=== PATIENT | male | born 1945 | race Caucasian/White ===

== ENCOUNTER → 2017-02-25 10:02 | Day surgery (SDC) | payer MEDICARE, OTHER ==
[~2017-02-25 10:02] MED LIST: Buffered Lidocaine 1% SYRIN* 3 ML/SYR SYRINGE INTRADERM ONE; Cisatracurium* 2 MG/ML MDV 5 ML ONE; Glycopyrrolate IV* 0.2 MG/ML 1 ML VIAL ONE; Lidocaine 2% PF* 5 ML VIAL ONE; Neostigmine Methylsulfate* 2 MG/2 ML SYRINGE ONE; Ondansetron INJ* 2 MG/ML VIAL IV PRN; Propofol* 10 MG/ML 20 ML BTL IV PUSH ONE; fentaNYL* 50 MCG/ML 2 ML VIAL (100 MCG VIAL) IV PRN; fentaNYL* 50 MCG/ML 2 ML VIAL (100 MCG VIAL) ONE
[2017-02-25 14:24] VITALS: BP 162/79
--- NOTE | 2017-02-26 09:04 | PRO ---
BRONCHOSCOPY REPORT: DATE OF PROCEDURE: 02/25/17 PROCEDURE PERFORMED: Bronchoscopy with endobronchial ultrasound-guided fine needle aspiration of mediastinal and hilar nodes. PREPROCEDURAL DIAGNOSIS: Lung mass in the left lower lobe and prominent mediastinal and hilar nodes. Rule out malignancy. ANESTHESIA: General anesthesia. ANESTHESIOLOGIST: Dr. Medina, refer to anesthesiologist's note for further details. PROCEDURE IN DETAIL: Informed consent was obtained from the patient prior to the procedure after all the risks and benefits were thoroughly explained. The patient recently had chest x-ray which showed pulmonary nodule in LLL. The patient had CT scan for evaluation of nodule which showed mildly prominent mediastinal and hilar nodes along with left lower lobe lobulated mass. The patient underwent PET scan which showed hypermetabolic left lower lobe nodule and increased uptake in hilar nodes on the left side. The patient was intubated with a size 9.0 endotracheal tube. Appropriate time-out was agreed on by attending staff prior to the procedure. Nazia Hugger and Venodynes were placed. A flexible Olympus bronchoscope was inserted through ET tube. The ET tube positioning was confirmed to be 1 cm about the level of court and was pulled back 2 cm. Minimal amount of secretions were noted and was suctioned out. Bronchoscope was withdrawn and EBUS bronchoscope was inserted. Station R4 lymph node was accessed with 4 passes. Rapid on-site evaluation(JEANETTE) revealed lymphatic tissue in 2 out of 4 passes. No abnormal cells were noted. Station 7 area node was accessed with 5 passes, JEANETTE revealed lymphatic tissue and necrotic debris. Bronchoscope was advanced to the left bronchial tree and L4 lymph node was accessed with 6 passes. Adequate lymphatic tissue was seen on JEANETTE . Necrotic tissue was seen. Bronchoscope was then advanced into the left hilum and station L10 was accessed with 5 passes. Necrotic tissue and malignant cells were noted. Rest of the specimen was placed in CytoLyt. The patient tolerated the procedure well. The patient was extubated and seen in recovery in optimal condition. [id number]/[facility] #: [id number] [facility]
== END | disposition home or self-care (01) ==
LOC: OR 10:02
PROVIDERS: ATTEND Internal Medicine
DX: C77.1 Secondary and unspecified malignant neoplasm of intrathoracic lymph nodes (principal); J98.4 Other disorders of lung; J44.9 Chronic obstructive pulmonary disease, unspecified; I10 Essential (primary) hypertension; Z87.891 Personal history of nicotine dependence; K21.9 Gastro-esophageal reflux disease without esophagitis; M19.90 Unspecified osteoarthritis, unspecified site
CPT/HCPCS: 88172; 88173; 88305; 88341; 88342; J2704; J3010

== ENCOUNTER 2017-04-08 09:19 | Emergency (ER) | payer MEDICARE, OTHER ==
[2017-04-08 09:57] VITALS: BP 161/73
--- NOTE | 2017-04-08 11:03 | UC ---
Calderon Nix Alok, scribed for Raz Arenas MD on 04/08/17 at 0952 . Neck Pain HPI - HPI Summary HPI Summary: 71M presents to the [facility] with neck pain for the past 2 weeks. Pt states his neck pain begins on the left side of his neck and radiates to the back of his head. Pt states his pain is worsened by supine position, as well as head movement worst on the left side. Pt states that while laying his pain is a 10/ 10 and currently at a 3/10. Pt denies numbness/weakness of face or extremities. Pt denies difficulty ambulating, or changes in BM or urine. Pt denies fever/ chills. Pt denies changes in vision, speech, or swallowing. Pt denies recent injury. Pt notes he remembers feeling a similar pain 10 years ago on the same side. PMHx includes a lung tumor diagnosed 4 weeks ago with chemo-treatment beginning 2 weeks ago. Additional PMHx includes HTN. - History of Current Complaint Chief Complaint: UCGeneralIllness Stated Complaint: PINCHED NERVE-NECK Time Seen by Provider: 04/08/17 09:34 Hx Obtained From: Patient Onset/Duration Of Injury/Symptoms: Weeks Mechanism Of Injury: No Known Trauma Onset/Duration: Lasting Weeks, Still Present Severity: Moderate Pain Intensity: 10 - while supine Pain Scale Used: 0-10 Numeric Location: Discrete At: - left side neck, Radiates To: - back of head Aggravating Factors: Position, Other: - head movement Alleviating Factors: Nothing Associated Signs & Symptoms: Negative: Weakness - Allergies/Home Medications Allergies/Adverse Reactions: Allergies Allergy/AdvReac Type Severity Reaction Status Date / Time Acetaminophen Allergy Intermediate inability Verified 03/11/17 10:55 [From Hydrocodone to urinate W/Acetaminophen] Hydrocodone Allergy Intermediate inability Verified 03/11/17 10:55 [From Hydrocodone to urinate W/Acetaminophen] Lactose Intolerance (GI) Allergy Intermediate Diarrhea Verified 03/11/17 10:55 Milk Protein Extract Allergy Intermediate hand Verified 03/11/17 10:55 [From Spiriva] numbness Naproxen [From Naprosyn] Allergy Intermediate Hives Verified 03/11/17 10:55 Tiotropium [From Spiriva] Allergy hand Verified 03/11/17 10:55 numbness seasonal-pollen Allergy See Comment Uncoded 03/11/17 10:55 PMH/Surg Hx/FS Hx/Imm Hx Endocrine History Of: Denies: Diabetes, Thyroid Disease Cardiovascular History Of: Denies: Cardiac Disorders, Hypertension, Pacemaker/ICD Respiratory History Of: Denies: COPD, Asthma, Bronchitis GI/ History Of: Denies: Ulcer, Renal Disease - Surgical History Surgical History: Yes Surgery Procedure, Year, and Place: knee right, 01/15/2012, [facility]. NASAL. LEFT WRIST. BLADDER tumor removedBRONCHOSCOPY-BIOPSY - MALIGNANT- END January. CATARACTS - Family History Known Family History: Positive: Other - No- Malignant Hypothermia - Social History Occupation: Retired Lives: With Family Alcohol Use: None Substance Use Type: None Smoking Status (MU): Former Smoker When Did the Patient Quit Smoking/Using Tobacco: Fall 1995 Review Of Systems Constitutional: Positive: Negative Genitourinary: Positive: Negative Musculoskeletal: Positive: Other: - neck pain Neurological: Positive: Headache All Other Systems Reviewed And Are Negative: Yes Physical Exam Triage Information Reviewed: Yes Appearance: Well-Appearing, No Pain Distress, Well-Nourished Vital Signs: Initial Vital Signs Temp 97.0 F 04/08/17 09:28 Pulse 67 04/08/17 09:28 Resp 16 04/08/17 09:28 BP 161/73 04/08/17 09:28 Pulse Ox 99 04/08/17 09:28 Vital Signs Reviewed: Yes ENT: Positive: Normal ENT inspection, Pharynx normal Neck: Positive: Supple, Nontender, Other: - range of motion to left is limited due to pain. Respiratory: Positive: Chest non-tender, Decreased breath sounds - bases Cardiovascular Exam: Normal Cardiovascular: Positive: RRR, No Murmur Musculoskeletal: Positive: Strength Intact, ROM Intact Neurological: Positive: Alert, Other: - CN 2-12 grossly intact, strength 5/5 throughout, sensory grossly intact. Gait normal. Psychological: Positive: Normal Response To Family Skin: Negative: rashes Neck Pain Course/Dx - Course Course Of Treatment: 71 yr old male with left side neck pain, worse with turning to the left and goes into the posterior left scalp area. He has neg MRI brain from March 2017, and recent PET scan of neck didn't show anything. He is on chemo and radiation for the past two weeks for left lower lung cancer. Dr Casillas called and attempted to coordinate care and imaging. His office staff left messages with him about the patient and to call us here. The patient has no neurological findings on exam. he wants to go and call Dr Casillas for follow up. He says he will go to the ER for any worse pain or symptoms. doesn't want pain meds. - Differential Dx/Diagnosis Provider Diagnoses: Left sided radicular neck pain - Physician Notification/Consults Discussed Patient Care With: Dr Casillas Time Discussed With Above Provider: 10:16 Discharge - Discharge Plan Condition: Good Disposition: HOME Patient Education Materials: Cervical Radiculopathy (ED), Neck Pain (ED) Referrals: Ruy Cain MD [Primary Care Provider] - Kike Casillas MD [Medical Doctor] - The documentation as recorded by the Calderon gage Alok accurately reflects the service I personally performed and the decisions made by me, Raz Arenas MD.
== END 2017-04-08 11:02 | disposition home or self-care (01) ==
LOC: UCEAST 09:19
DX: M54.12 Radiculopathy, cervical region (principal); R51 Headache; Z88.6 Allergy status to analgesic agent; Z88.5 Allergy status to narcotic agent; Z98.49 Cataract extraction status, unspecified eye; Z87.891 Personal history of nicotine dependence
CPT/HCPCS: 99212; G0463

== ENCOUNTER 2017-05-11 18:03 | Emergency (ER) | payer MEDICARE, OTHER ==
[2017-05-11] MEDS ORDERED: Ondansetron INJ* 2 MG/ML VIAL IV ONE (18:41)
[2017-05-11] MEDS ORDERED: Pantoprazole IV* 40 MG IV ONE (18:41)
[2017-05-11] MEDS: NS 0.9% 1000 ML* 2,000 ML IV ONE ×2 (19:17→20:20)
[2017-05-11 19:21] LABS: Hematocrit 25 % (42-52); Hemoglobin 8.8 g/dl (14.0-18.0); Mean Corpuscular HGB Conc 35 g/dl (31-36); Mean Corpuscular Hemoglobin 31 pg (27-31); Mean Corpuscular Volume 88 fL (80-94); Mean Platelet Volume 9 um3 (7.4-10.4); Red Blood Count 2.83 10^6/ul (4.0-5.4); Red Cell Distribution Width 15 % (10.5-15)
[2017-05-11 19:29] LABS: Comments Flag Yes; White Blood Count 1.7 10^3/ul (3.5-10.8)
[2017-05-11 19:36] LABS: Albumin 3.7 g/dL (3.2-5.2); BUN/Creatinine Ratio 20.3 (8-20); C Reactive Protein 13.66 mg/L (< 5.00); Calcium 9.3 mg/dL (8.6-10.3); EGFR African American 62.5 (>60); EGFR Non-African American 48.6 (>60); Globulin 2.9 g/dL (2-4); Total Bilirubin 0.7 mg/dL (0.2-1.0); Total Protein 6.6 g/dL (6.4-8.9)
[2017-05-11 19:37] LABS: Troponin I 0.02 ng/mL (<0.04)
[2017-05-11] MEDS ORDERED: Potassium Chlor TAB* 20 MEQ TAB.ER PO ONE (20:14)
--- NOTE | 2017-05-11 20:15 | ED ---
Hilton Nix Rebecca, scribed for Franky Bahena MD on 05/11/17 at 1926 . Complex/Multi-Sys Presentation - HPI Summary HPI Summary: Pt is a 71 y/o M who presents to ED c/o N/V/D for the last 3 days. States that he has been unable to keep down any PO intake since Tuesday with sx worsening since onset. Nausea alleviated by administration of IV Zofran, aggravated by PO intake. Denies any fever or pain including CP and abd pain. Pt recently finished chemotherapy and radiation Tx for lung CA. he has contacted his oncologist about such sx, who prescribed medication that the pt reports is not improving. Has not had prior reactions to chemotherapy. PCP is Dr. Cain, oncologist is Dr. Hernandez. - History Of Current Complaint Chief Complaint: EDNauseaVomitDiarrh Time Seen by Provider: 05/11/17 19:18 Hx Obtained From: Patient Onset/Duration: Still Present Timing: Intermittent, Lasting: Severity Currently: None Location: Negative Aggravating Factor(s): PO Intake Alleviating Factor(s): IV Zofran Associated Signs And Symptoms: Positive: Nausea, Vomiting, Diarrhea. Negative: Chest Pain, Abdominal Pain, Fever - Allergies/Home Medications Allergies/Adverse Reactions: Allergies Allergy/AdvReac Type Severity Reaction Status Date / Time Hydrocodone Allergy Intermediate inability Verified 05/11/17 20:44 [From Hydrocodone to urinate W/Acetaminophen] Lactose Intolerance (GI) Allergy Intermediate Diarrhea Verified 05/11/17 20:44 Milk Protein Extract Allergy Intermediate hand Verified 05/11/17 20:44 [From Spiriva] numbness Naproxen [From Naprosyn] Allergy Intermediate Hives Verified 05/11/17 20:44 Tiotropium [From Spiriva] Allergy hand Verified 05/11/17 20:44 numbness seasonal-pollen Allergy See Comment Uncoded 05/11/17 20:44 Home Medications: Home Medications Carafate* 1 gm PO QID 05/11/17 [History Confirmed 05/11/17] Compazine Tab* 10 mg PO Q6HR PRN 05/11/17 [History Confirmed 05/11/17] Esomeprazole(NF) 40 mg PO DAILY 05/11/17 [History Confirmed 05/11/17] Magnesium Oxide 400 mg PO BID 05/11/17 [History Confirmed 05/11/17] Zofran 4 MG Tab* 4 mg PO Q4HR PRN 05/11/17 [History Confirmed 05/11/17] PMH/Surg Hx/FS Hx/Imm Hx Endocrine/Hematology History: Denies: Hx Diabetes, Hx Thyroid Disease Cardiovascular History: Reports: Hx Angina - yrs ago 1995 Denies: Hx Hypertension, Hx Pacemaker/ICD, Other Cardiovascular Problems/ Disorders Respiratory History: Reports: Hx Sleep Apnea - NO C PCP, Other Respiratory Problems/Disorders Denies: Hx Asthma, Hx Chronic Obstructive Pulmonary Disease (COPD) GI History: Reports: Hx Gastroesophageal Reflux Disease Denies: Hx Ulcer, Other GI Disorders History: Reports: Other Problems/Disorders - hematuria, bladder tumor Denies: Hx Renal Disease Musculoskeletal History: Reports: Hx Arthritis - HANDS, knees Sensory History: Reports: Hx Contacts or Glasses Denies: Hx Hearing Aid Opthamlomology History: Reports: Hx Contacts or Glasses Neurological History: Denies: Other Neuro Impairments/Disorders Psychiatric History: Denies: Hx Panic Disorder - Cancer History Cancer Type, Location and Year: BLADDER TUMOR - REMOVED - NO OTHER TREATMENT- BENIGN. 01/2017 LUNG CANCER presently on chemo/rad Hx Chemotherapy: No Hx Radiation Therapy: No - Surgical History Surgery Procedure, Year, and Place: knee right, 01/15/2012, [facility]. NASAL. LEFT WRIST. BLADDER tumor removedBRONCHOSCOPY-BIOPSY - MALIGNANT- END January. CATARACTS Hx Anesthesia Reactions: No Infectious Disease History: No Infectious Disease History: Denies: Hx Clostridium Difficile, Hx Hepatitis, Hx Human Immunodeficiency Virus (HIV), Hx of Known/Suspected MRSA, Hx Shingles, Hx Tuberculosis, Hx Known/ Suspected VRE, Hx Known/Suspected VRSA, History Other Infectious Disease, Traveled Outside the [place] in Last 30 Days - Family History Known Family History: Positive: Other - Lung CA - Social History Alcohol Use: None Substance Use Type: Reports: None Hx Tobacco Use: No Smoking Status (MU): Former Smoker Have You Smoked in the Last Year: No Review of Systems Negative: Fever Negative: Chest Pain Positive: Vomiting, Diarrhea, Nausea. Negative: Abdominal Pain All Other Systems Reviewed And Are Negative: Yes Physical Exam Triage Information Reviewed: Yes Vital Signs On Initial Exam: Initial Vitals Temp Pulse Resp BP Pulse Ox 97.7 F 103 20 146/65 100 05/11/17 18:05 05/11/17 18:05 05/11/17 18:05 05/11/17 18:05 05/11/17 18:05 Vital Signs Reviewed: Yes Appearance: Positive: Well-Appearing, No Pain Distress Skin: Positive: Warm, Dry Head/Face: Positive: Normal Head/Face Inspection Eyes: Positive: REYMUNDO ENT: Positive: Hearing grossly normal Neck: Positive: Supple Respiratory/Lung Sounds: Positive: Clear to Auscultation, Breath Sounds Present Cardiovascular: Positive: RRR Abdomen Description: Positive: Nontender, Soft Bowel Sounds: Positive: Present Musculoskeletal: Positive: Strength/ROM Intact Neurological: Positive: Alert, Oriented to Person Place, Time Psychiatric: Positive: Affect/Mood Appropriate - [place] Coma Scale Coma Scale Total: 15 Diagnostics - Vital Signs Vital Signs Temp Pulse Resp BP Pulse Ox 05/11/17 18:07 97.7 F 76 20 146/65 100 05/11/17 18:05 97.7 F 103 20 146/65 100 - Laboratory Lab Results: Lab Results 05/11/17 05/11/17 05/11/17 Range/Units 19:08 19:08 19:08 WBC 1.7 L (3.5-10.8) 10^3/ul RBC 2.83 L (4.0-5.4) 10^6/ul Hgb 8.8 L (14.0-18.0) g/dl Hct 25 L (42-52) % MCV 88 (80-94) fL MCH 31 (27-31) pg MCHC 35 (31-36) g/dl RDW 15 (10.5-15) % Plt Count 103 L (150-450) 10^3/ul MPV 9 (7.4-10.4) um3 Neut % (Auto) 55.9 (38-83) % Lymph % (Auto) 11.6 L (25-47) % [place] % (Auto) 31.1 H (1-9) % Eos % (Auto) 1.0 (0-6) % Baso % (Auto) 0.4 (0-2) % Absolute Neuts (auto) 1.0 L (1.5-7.7) 10^3/ul Absolute Lymphs (auto) 0.2 L (1.0-4.8) 10^3/ul Absolute Monos (auto) 0.5 (0-0.8) 10^3/ul Absolute Eos (auto) 0 (0-0.6) 10^3/ul Absolute Basos (auto) 0 (0-0.2) 10^3/ul Absolute Nucleated RBC 0.01 10^3/ul Nucleated RBC % 0.4 Sodium 132 L (133-145) mmol/L Potassium 3.0 L (3.5-5.0) mmol/L Chloride 97 L (101-111) mmol/L Carbon Dioxide 23 (22-32) mmol/L Anion Gap 12 H (2-11) mmol/L BUN 29 H (6-24) mg/dL Creatinine 1.43 H (0.67-1.17) mg/dL Est GFR ( Amer) 62.5 (>60) Est GFR (Non-Af Amer) 48.6 (>60) BUN/Creatinine Ratio 20.3 H (8-20) Glucose 96 (70-100) mg/dL Lactic Acid 1.4 (0.5-2.0) mmol/L Calcium 9.3 (8.6-10.3) mg/dL Total Bilirubin 0.70 (0.2-1.0) mg/dL AST 14 (13-39) U/L ALT 8 (7-52) U/L Alkaline Phosphatase 72 (34-104) U/L Troponin I 0.02 (<0.04) ng/mL C-Reactive Protein 13.66 H (< 5.00) mg/L Total Protein 6.6 (6.4-8.9) g/dL Albumin 3.7 (3.2-5.2) g/dL Globulin 2.9 (2-4) g/dL Albumin/Globulin Ratio 1.3 (1-3) Amylase 24 L (29-103) U/L Lipase 13 (11.0-82.0) U/L Result Diagrams: 05/11/17 19:08 05/11/17 19:08 Lab Statement: Any lab studies that have been ordered have been reviewed, and results considered in the medical decision making process. - EKG 4306 Cardiac Rate: NL - 95 bpm EKG Rhythm: Sinus Rhythm ST Segment: Non-Specific - Non-specific ST abnormality Re-Evaluation - Re-Evaluation First Eval Re-Evaluation Time: 21:35 Change: Improved Second Eval Re-Evaluation Time: 22:37 Change: Improved Comment: Discussed D/C plan with pt. labs at baseline, tolerating po, wants to go home will d/c Complex Multi-Symp Course/Dx Assessment/Plan: Pt is a 71 y/o M who presents to ED c/o N/V/D for the last 3 days, worsening since onset. Nausea alleviated by administration of IV Zofran, aggravated by PO intake. Denies any fever or pain including CP and abd pain. Pt recently finished chemotherapy and radiation Tx for lung CA. he has contacted his oncologist about such sx, who prescribed medication that the pt reports is not improving. Has not had prior reactions to chemotherapy. PCP is Dr. Cain, oncologist is Dr. Hernandez. WBC of 1.7, CRP of 13.66, Sodium of 132, chloride of 97. Pt will be D/C to home with Dx of vomiting and dehydration with a follow up with his PCP. He agrees and understands. - Diagnoses Provider Diagnoses: Vomiting, Dehydration Discharge - Discharge Plan Condition: Stable Disposition: HOME Patient Education Materials: Dehydration (ED), Acute Nausea and Vomiting (ED) Referrals: Ruy Cain MD [Primary Care Provider] - 2 Days (Follow up with your Primary Care Physician this week. ) The documentation as recorded by the Hilton gage Rebecca accurately reflects the service I personally performed and the decisions made by me, Franky Bahena MD.
[2017-05-11 23:06] VITALS: BP 141/68
== END 2017-05-11 22:43 | disposition home or self-care (01) ==
LOC: ED 18:03
DX: R11.2 Nausea with vomiting, unspecified (principal); E86.0 Dehydration; R19.7 Diarrhea, unspecified; Z87.891 Personal history of nicotine dependence
CPT/HCPCS: 36415; 80053; 82150; 83605; 83690; 84484; 85025; 86140; 93005; 96374; 99283; A9270-GY; J2405

== ENCOUNTER 2017-05-13 20:31 | Inpatient (IN) | payer MEDICARE, OTHER ==
[2017-05-13] MEDS ORDERED: NS 0.9% 1000 ML* 1,000 ML IV ONE (21:30)
[2017-05-13 21:58] LABS: Hematocrit 22 % (42-52); Hemoglobin 7.8 g/dl (14.0-18.0); Mean Corpuscular HGB Conc 35 g/dl (31-36); Mean Corpuscular Hemoglobin 31 pg (27-31); Mean Corpuscular Volume 90 fL (80-94); Mean Platelet Volume 8 um3 (7.4-10.4); Red Blood Count 2.49 10^6/ul (4.0-5.4); Red Cell Distribution Width 17 % (10.5-15)
[2017-05-13 22:00] LABS: Comments Flag Yes
[2017-05-13 22:01] LABS: White Blood Count 1.7 10^3/ul (3.5-10.8)
[2017-05-13 22:15] LABS: Albumin 3.4 g/dL (3.2-5.2); BUN/Creatinine Ratio 17.4 (8-20); Calcium 8.8 mg/dL (8.6-10.3); EGFR Non-African American 48.2 (>60); Globulin 2.7 g/dL (2-4); Magnesium 1.7 mg/dL (1.9-2.7); Potassium 2.9 mmol/L (3.5-5.0); Total Bilirubin 0.7 mg/dL (0.2-1.0); Total Protein 6.1 g/dL (6.4-8.9)
[2017-05-13 22:16] LABS: Troponin I 0.01 ng/mL (<0.04)
--- NOTE | 2017-05-13 22:28 | ED ---
Jenna Nix Thomas, scribed for Franky Bahena MD on 05/13/17 at 2219 . Dizziness - HPI Summary HPI Summary: The pt is a 71 y/o M with a Hx of chemotherapy and CA who presents to the ED c/ o severe dizziness. The pt was driving when he developed severe dizziness that caused him to stop driving. He additionally c/o vomiting and inability to keep any food down. He denies pain anywhere. His last chemotherapy appointment was 10 days ago. He saw his oncologist yesterday. - History Of Current Complaint Chief Complaint: EDGeneral Stated Complaint: DIZZINESS/NAUSEA Time Seen by Provider: 05/13/17 21:22 Hx Obtained From: Patient Onset/Duration: Suddenly Severity Initially: Severe Aggravating Factor(s): Nothing Alleviating Factor(s): Nothing Associated Signs And Symptoms: Positive: Other: - POS: vomiting, inability to keep food down; NEG: pain of any sort - Allergies/Home Medications Allergies/Adverse Reactions: Allergies Allergy/AdvReac Type Severity Reaction Status Date / Time Hydrocodone Allergy Intermediate inability Verified 05/11/17 20:44 [From Hydrocodone to urinate W/Acetaminophen] Lactose Intolerance (GI) Allergy Intermediate Diarrhea Verified 05/11/17 20:44 Milk Protein Extract Allergy Intermediate hand Verified 05/11/17 20:44 [From Spiriva] numbness Naproxen [From Naprosyn] Allergy Intermediate Hives Verified 05/11/17 20:44 Tiotropium [From Spiriva] Allergy hand Verified 05/11/17 20:44 numbness seasonal-pollen Allergy See Comment Uncoded 05/11/17 20:44 Home Medications: Home Medications Benzonatate 100 mg PO Q8HR 05/13/17 [History Confirmed 05/13/17] Clotrimazole 10 mg PO TID 05/13/17 [History Confirmed 05/13/17] Docusate Sodium [Colace Clear] 50 mg PO BID 05/13/17 [History Confirmed 05/13/17 ] Lorazepam [Ativan 0.5 MG TAB] 0.5 mg PO TID MDD 3 tablets 05/13/17 [History Confirmed 05/14/17] PMH/Surg Hx/FS Hx/Imm Hx Previously Healthy: No Endocrine/Hematology History: Denies: Hx Diabetes, Hx Thyroid Disease Cardiovascular History: Reports: Hx Angina - yrs ago 1995 Denies: Hx Hypertension, Hx Pacemaker/ICD, Other Cardiovascular Problems/ Disorders Respiratory History: Reports: Hx Sleep Apnea - NO C PCP, Other Respiratory Problems/Disorders Denies: Hx Asthma, Hx Chronic Obstructive Pulmonary Disease (COPD) GI History: Reports: Hx Gastroesophageal Reflux Disease Denies: Hx Ulcer, Other GI Disorders History: Reports: Other Problems/Disorders - hematuria, bladder tumor Denies: Hx Renal Disease Musculoskeletal History: Reports: Hx Arthritis - HANDS, knees Sensory History: Reports: Hx Contacts or Glasses Denies: Hx Hearing Aid Opthamlomology History: Reports: Hx Contacts or Glasses Neurological History: Denies: Other Neuro Impairments/Disorders Psychiatric History: Denies: Hx Panic Disorder - Cancer History Cancer Type, Location and Year: BLADDER TUMOR - REMOVED - NO OTHER TREATMENT- BENIGN. 01/2017 LUNG CANCER presently on chemo/rad Hx Chemotherapy: No Hx Radiation Therapy: No - Surgical History Surgery Procedure, Year, and Place: knee right, 01/15/2012, [facility]. NASAL. LEFT WRIST. BLADDER tumor removedBRONCHOSCOPY-BIOPSY - MALIGNANT- END January. CATARACTS Hx Anesthesia Reactions: No Infectious Disease History: No Infectious Disease History: Denies: Hx Clostridium Difficile, Hx Hepatitis, Hx Human Immunodeficiency Virus (HIV), Hx of Known/Suspected MRSA, Hx Shingles, Hx Tuberculosis, Hx Known/ Suspected VRE, Hx Known/Suspected VRSA, History Other Infectious Disease, Traveled Outside the [place] in Last 30 Days - Family History Known Family History: Positive: Other - Lung CA - Social History Alcohol Use: None Substance Use Type: Reports: None Hx Tobacco Use: No Smoking Status (MU): Former Smoker Have You Smoked in the Last Year: No Review of Systems Positive: Other - inability to keep food down Eyes: Negative ENT: Negative Cardiovascular: Negative Respiratory: Negative Positive: Vomiting Genitourinary: Negative Musculoskeletal: Negative Skin: Negative Neurological: Other - POS: dizziness, onset suddenly earlier today Psychological: Normal All Other Systems Reviewed And Are Negative: Yes Physical Exam Triage Information Reviewed: Yes Vital Signs On Initial Exam: Initial Vitals Temp Pulse Resp BP Pulse Ox 98.6 F 106 20 141/63 99 05/13/17 20:58 05/13/17 20:58 05/13/17 20:58 05/13/17 20:58 05/13/17 20:58 Vital Signs Reviewed: Yes Appearance: Positive: No Pain Distress, Ill-Appearing Skin: Positive: Warm, Pale Head/Face: Positive: Normal Head/Face Inspection Eyes: Positive: REYMUNDO ENT: Positive: Hearing grossly normal Neck: Positive: Supple, Nontender Respiratory/Lung Sounds: Positive: Clear to Auscultation, Breath Sounds Present Cardiovascular: Positive: RRR Abdomen Description: Positive: Nontender, Soft Bowel Sounds: Positive: Present Musculoskeletal: Positive: Strength/ROM Intact Neurological: Positive: Alert, Oriented to Person Place, Time Psychiatric: Positive: Affect/Mood Appropriate Diagnostics - Vital Signs Vital Signs Temp Pulse Resp BP Pulse Ox 05/13/17 20:58 98.6 F 106 20 141/63 99 - Laboratory Lab Results: Lab Results 05/13/17 05/13/17 Range/Units 21:47 21:47 WBC 1.7 L (3.5-10.8) 10^3/ul RBC 2.49 L (4.0-5.4) 10^6/ul Hgb 7.8 L (14.0-18.0) g/dl Hct 22 L (42-52) % MCV 90 (80-94) fL MCH 31 (27-31) pg MCHC 35 (31-36) g/dl RDW 17 H (10.5-15) % Plt Count 92 L (150-450) 10^3/ul MPV 8 (7.4-10.4) um3 Neut % (Auto) 46.1 (38-83) % Lymph % (Auto) 13.0 L (25-47) % [place] % (Auto) 39.7 H (1-9) % Eos % (Auto) 0.7 (0-6) % Baso % (Auto) 0.5 (0-2) % Absolute Neuts (auto) 0.8 L* (1.5-7.7) 10^3/ul Absolute Lymphs (auto) 0.2 L (1.0-4.8) 10^3/ul Absolute Monos (auto) 0.7 (0-0.8) 10^3/ul Absolute Eos (auto) 0 (0-0.6) 10^3/ul Absolute Basos (auto) 0 (0-0.2) 10^3/ul Absolute Nucleated RBC 0 10^3/ul Nucleated RBC % 0.3 Lactic Acid 0.9 (0.5-2.0) mmol/L Result Diagrams: 05/13/17 21:47 05/13/17 21:47 Lab Statement: Any lab studies that have been ordered have been reviewed, and results considered in the medical decision making process. - EKG 21:30 Cardiac Rate: NL - 90 EKG Interpretation: SR Re-Evaluation - Re-Evaluation First Eval Comment: pt with progresively worsening anemia, weakness decreased po intake, will admit, d/w hospitalist Dizzy Course/Dx - Diagnoses Provider Diagnoses: Anemia - Provider Notifications Discussed Care Of Patient With: Johny Belcher Time Discussed With Above Provider: 22:30 Instructed by Provider To: Admit As Inpatient - Discussed patient Discharge - Discharge Plan Condition: Fair Disposition: ADMITTED TO [facility] The documentation as recorded by the Jenna gage Thomas accurately reflects the service I personally performed and the decisions made by me, Franky Bahena MD.
[2017-05-13] MEDS ORDERED: Ondansetron INJ* 2 MG/ML VIAL IV PRN (23:33)
[2017-05-14] MEDS: NS 0.9% w/ 20 Meq KCL 1000 ML* 1,000 ML IV SCH ×3 (01:43→22:04)
[2017-05-14 05:26] LABS: Hematocrit 22 % (42-52); Hemoglobin 7.5 g/dl (14.0-18.0); Mean Corpuscular HGB Conc 35 g/dl (31-36); Mean Corpuscular Hemoglobin 31 pg (27-31); Mean Corpuscular Volume 90 fL (80-94); Mean Platelet Volume 8 um3 (7.4-10.4); Red Blood Count 2.42 10^6/ul (4.0-5.4); Red Cell Distribution Width 17 % (10.5-15)
[2017-05-14 05:36] LABS: Comments Flag Yes; White Blood Count 1.5 10^3/ul (3.5-10.8)
[2017-05-14 05:40] LABS: BUN/Creatinine Ratio 16.4 (8-20); Calcium 8.2 mg/dL (8.6-10.3); EGFR Non-African American 55.2 (>60); Potassium 3.1 mmol/L (3.5-5.0)
[2017-05-14] MEDS: Omeprazole CAP* 20 MG PO SCH (05:45)
[2017-05-14] MEDS ORDERED: Magnesium Sulf 4 GM/100 ML IV* 4,000 MG/100 ML BAG IVPB ONE (08:50)
[2017-05-14] MEDS ORDERED: Pneumococcal Vac Polyvalent* 0.5 ML VIAL IM ONE (09:00)
--- NOTE | 2017-05-14 09:11 | PN ---
Progress Note - Progress Note Date of Service: 05/14/17 SOAP: Subjective: feels better than yesterday. no dizziness yet this morning but has not ambulated. reports that he had a coughing fit while driving yesterday, got dizzy, thought he pulled over to the side of the road but apparently when he "came to" he was in the middle of the road. denies headaches, nausea, double vision, or focal neurological complaints. He has had poor PO intake which he relates to trouble swallowing (just finished RT Tuesday). He was nauseous earlier in the week but not now. While speaking to me he was clearly having trouble swallowing eggs (pain mid throat). no diarrhea Objective: Vital Signs Temp Pulse Resp BP Pulse Ox 98.2 F 91 16 131/54 97 05/14/17 07:33 05/14/17 07:33 05/14/17 07:33 05/14/17 07:33 05/14/17 07:33 sitting up in nad perr eomi op dry distant breath sounds s1 s2 nl soft nt +bs no le edema A+O x 3, nonfocal neurological exam Laboratory Results - last 24 hr 05/13/17 05/13/17 05/13/17 21:47 21:47 21:47 WBC 1.7 L RBC 2.49 L Hgb 7.8 L Hct 22 L MCV 90 MCH 31 MCHC 35 RDW 17 H Plt Count 92 L MPV 8 Neut % (Auto) 46.1 Lymph % (Auto) 13.0 L [place] % (Auto) 39.7 H Eos % (Auto) 0.7 Baso % (Auto) 0.5 Absolute Neuts (auto) 0.8 L* Absolute Lymphs (auto) 0.2 L Absolute Monos (auto) 0.7 Absolute Eos (auto) 0 Absolute Basos (auto) 0 Absolute Nucleated RBC 0 Nucleated RBC % 0.3 Sodium 132 L Potassium 2.9 L Chloride 99 L Carbon Dioxide 22 Anion Gap 11 BUN 25 H Creatinine 1.44 H Est GFR ( Amer) 62.0 Est GFR (Non-Af Amer) 48.2 BUN/Creatinine Ratio 17.4 Glucose 93 Lactic Acid 0.9 Calcium 8.8 Magnesium 1.7 L Total Bilirubin 0.70 AST 14 ALT 9 Alkaline Phosphatase 63 Troponin I 0.01 Total Protein 6.1 L Albumin 3.4 Globulin 2.7 Albumin/Globulin Ratio 1.3 05/14/17 05/14/17 05:10 05:10 WBC 1.5 L RBC 2.42 L Hgb 7.5 L Hct 22 L MCV 90 MCH 31 MCHC 35 RDW 17 H Plt Count 84 L MPV 8 Neut % (Auto) 47.8 Lymph % (Auto) 11.5 L [place] % (Auto) 38.9 H Eos % (Auto) 1.3 Baso % (Auto) 0.5 Absolute Neuts (auto) 0.7 L* Absolute Lymphs (auto) 0.2 L Absolute Monos (auto) 0.6 Absolute Eos (auto) 0 Absolute Basos (auto) 0 Absolute Nucleated RBC 0.02 Nucleated RBC % 1.4 Sodium 135 Potassium 3.1 L Chloride 104 Carbon Dioxide 22 Anion Gap 9 BUN 21 Creatinine 1.28 H Est GFR ( Amer) 71.0 Est GFR (Non-Af Amer) 55.2 BUN/Creatinine Ratio 16.4 Glucose 93 Lactic Acid Calcium 8.2 L Magnesium Total Bilirubin AST ALT Alkaline Phosphatase Troponin I Total Protein Albumin Globulin Albumin/Globulin Ratio Potassium Chloride/Sodium Chloride (Ns 0.9% W/ 20 Meq Kcl 1000 Ml*) 1,000 mls @ 125 mls/hr IV PER RATE [facility] Last Admin: 05/14/17 01:43 Dose: 125 mls/hr Magnesium Sulfate (Magnesium Sulf 4 Gm/100 Ml Iv*) 4,000 mg in 100 mls @ 33.333 mls/hr IVPB ONCE ONE Stop: 05/14/17 11:49 Omeprazole (Prilosec Cap*) 20 mg PO 0600 [facility] Last Admin: 05/14/17 05:45 Dose: 20 mg Ondansetron HCl (Zofran Inj*) 4 mg IV Q4H PRN PRN Reason: NAUSEA Sucralfate (Sucralfate Susp) 1 gm PO 0600,1100,1600,2100 [facility] Assessment: 71 yo M w unresectable lung CA sp carbo/taxol/RT (last chemo 05/03, last RT 05/09 ) presenting with dizziness in the setting of dehydration and symptomatic anemia. Plan: Dehydration: related to poor PO intake from esophagitis and earlier nausea and vomiting -replete IV with KCL in bag acute renal failure: prerenal azotemia from poor PO intake relete IV dizziness: suspect from dehydration and symptomatic anemia will transfuse this afternoon and then check orthostatic and ambulate. if still dizzy will image [employer] symptomatic anemia: from chemotherapy transfuse today esophagitis: related to RT, will take another week or so to start to improve add carafate liquid may need to consider soft diet cont PPI hypomagnesemia: from carboplatin replete IV, recheck in am add DVT prophylaxis full code
[2017-05-14] MEDS ORDERED: traMADol TAB* 50 MG PO PRN (11:35)
[2017-05-14] MEDS: Enoxaparin(*) 40 MG/0.4 ML SYR SUBCUT SCH (12:13)
[2017-05-14] MEDS: Sucralfate SUSP 1 GM/10 ml 10 ML UDC PO SCH ×3 (12:13→20:50)
--- NOTE | 2017-05-14 14:42 | HP ---
CC: Dr. Ruy Cain; Dr. Kike Casillas* HISTORY AND PHYSICAL: DATE OF ADMISSION: 05/13/17 CHIEF COMPLAINT: Dizziness. 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 He thought he might have actually steered his car off the road, but he did not. At that time, he had no nausea. He had no headache. He did have a cough though that was quite considerable. He denied fevers or chills. He is currently coughing up some light clear phlegm. He has been feeling increasingly weak lately. He was actually in the ER on Tuesday mostly because he was so weak he could not walk, but that is not as much of a problem now. He also recently completed chemotherapy a week ago. He got home, still felt quite dizzy and called his oncologist but then he just came over to the hospital at that point. He has had a decreased appetite and says anytime he eats anything lately, he just throws it up, so he thinks he has decreased oral intake. PAST MEDICAL HISTORY: He has a past medical history for recently diagnosed lung cancer, he is not quite sure what type; hypertension; COPD; hyperlipidemia ; arthritis; GERD; decreased hearing; chronic epistaxis; colonic polyps; BPH; and iron deficiency anemia. PAST SURGICAL HISTORY: Significant for knee surgery, wrist surgery, and cystoscopy where he was diagnosed for resection of bladder lesions. MEDICATIONS: His medication list is being updated, not currently available. ALLERGIES: He has allergy/adverse reactions to HYDROCODONE, LACTOSE, Milk Protein Extract, NAPROXEN, TIOTROPIUM and SEASONAL POLLEN. FAMILY HISTORY: His father had lung cancer, mother had brain cancer and lung cancer and of heart disease. SOCIAL HISTORY: Quit tobacco 21 years ago. No alcohol, he quit that 21 years ago as well. No recreational drug use. He is retired. He worked for [employer]. 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 He is . He has step-children. His Billie Espinosa is his health care proxy. REVIEW OF SYSTEMS: A 14-point review of systems was completed with the patient. All pertinent positives and negatives are in the history of present illness, otherwise is negative. PHYSICAL EXAMINATION GENERAL: A very pleasant gentleman, lying in bed, in no acute distress. VITAL SIGNS: Temperature 98.6 degrees, heart rate 106 beats per minute, respiratory rate 20 breaths per minute, pulse ox 99%, blood pressure 140/63. HEENT: Normocephalic, atraumatic. Pupils equal, round, reactive to light. He has got dry mucous membranes. NECK: Supple. No JVD, bruits, palpable thyroid, or lymphadenopathy. CHEST: Clear to auscultation and percussion bilaterally. CARDIOVASCULAR: S1, S2 appreciated, regular rate and rhythm. ABDOMEN: Positive bowel sounds in all 4 quadrants. Soft, nontender, nondistended. EXTREMITIES: No cyanosis, clubbing, or edema, +2 peripheral pulses bilaterally. NEUROLOGIC: Alert and oriented x3. Moves all extremities. SKIN: No rash or abnormalities. LABORATORY DATA: White count 1.7, hemoglobin 7.8, hematocrit 22, platelet count is 92. Sodium is 132, potassium 3.9, chloride 99, CO2 22, BUN 25, creatinine 1.44, glucose 93, magnesium 1.7. EKG shows normal sinus rhythm at 90 beats per minute. Normal axis. No acute ST -T wave changes. ASSESSMENT AND PLAN: 1. Dizziness, most certainly secondary to decreased p.o. intake and dehydration. He has not been taking much p.o. lately. He does seem to have dehydration also based on his labs. Furthermore, it is likely complicated by the pancytopenia he now has likely from the chemotherapy. I will hydrate him with normal saline with 20 mL of K, 125 cc an hour. I will give him a regular diet. I will place him on Zofran, hopefully this will help with the nausea and we can increase his p.o. intake and make him feel improved. 2. Pancytopenia: Likely from chemo. We will monitor. Certainly his anemia is not helping matters. If he decreases at all anymore, we will consider strongly giving him blood transfusion which should help him feel better. 3. Cough: Uncertain why he is having one at this time, certainly could be from the lung cancer. I will put him on Tessalon Perles for now. 4. Hypertension: Should improve once we initiate his antihypertensives when he has med rec done. 5. Gastroesophageal reflux disease: We will place him on PPI as well as he is chronically on that. 6. FEN: Regular diet and normal saline with 20 mL of K at 25 cc as noted above. 7. DVT prophylaxis: His platelets are low, I will put him on sequential compression stockings. 8. The patient is a full code. TIME SPENT: Over 75 minutes was spent on this H and P. More than 40 minutes of which was spent on direct [id number] contact with the patient evaluation, physical exam, counseling, and coordination of care. [id number]/[facility] #: [id number] SAMMY
[2017-05-15 05:11] LABS: Urine Bacteria Absent (Absent); Urine Bilirubin Negative (Negative); Urine Glucose Negative (Negative); Urine Nitrite Negative (Negative)
[2017-05-15] MEDS: Omeprazole CAP* 20 MG PO SCH (06:13)
[2017-05-15] MEDS: Sucralfate SUSP 1 GM/10 ml 10 ML UDC PO SCH ×2 (06:13→11:00)
[2017-05-15] MEDS: NS 0.9% w/ 20 Meq KCL 1000 ML* 1,000 ML IV SCH (06:16)
[2017-05-15 06:54] LABS: Hematocrit 26 % (42-52); Mean Corpuscular HGB Conc 35 g/dl (31-36); Mean Corpuscular Hemoglobin 31 pg (27-31); Mean Corpuscular Volume 90 fL (80-94); Mean Platelet Volume 8 um3 (7.4-10.4); Red Blood Count 2.91 10^6/ul (4.0-5.4); Red Cell Distribution Width 16 % (10.5-15); White Blood Count 1.5 10^3/ul (3.5-10.8)
[2017-05-15 06:56] LABS: Comments Flag Yes
[2017-05-15 07:04] LABS: Albumin 3.1 g/dL (3.2-5.2); Calcium 8.1 mg/dL (8.6-10.3); EGFR African American 94.5 (>60); EGFR Non-African American 73.5 (>60); Globulin 2.5 g/dL (2-4); Magnesium 2.1 mg/dL (1.9-2.7); Potassium 3.4 mmol/L (3.5-5.0); Total Bilirubin 0.5 mg/dL (0.2-1.0); Total Protein 5.6 g/dL (6.4-8.9)
[2017-05-15] MEDS: Enoxaparin(*) 40 MG/0.4 ML SYR SUBCUT SCH (11:01)
--- NOTE | 2017-05-15 11:55 | DCNOTE ---
Patient seen this morning. Has been ambulating around the unit since yesterday, no recurrent of dizziness. Appetite has improved, ate all of his breakfast. On exam, RRR, s1 and s2 present, no m/g/r, some coarse BS in LLL field, no LE edema AVNI resolved, electrolytes improved, anemia responded appropriately. Still pancytopenic. ANC 800. Plan to discharge today with plans for outpatient PCP and Oncology follow-up.
[2017-05-15 12:07] VITALS: BP 141/59
--- NOTE | 2017-05-16 11:49 | DS ---
CC: Dr. Cain; Dr. Kike Casillas, Oncology* DISCHARGE SUMMARY: DATE OF ADMISSION: 05/13/17 DATE OF DISCHARGE: 05/15/17 PRIMARY CARE PHYSICIAN: Dr. Cain. PRINCIPAL DISCHARGE DIAGNOSES: 1. Acute kidney injury. 2. Dehydration. 3. Hypokalemia. 4. Hypomagnesemia. 5. Pancytopenia. SECONDARY DIAGNOSES: 1. Lung cancer, currently receiving chemotherapy and radiation therapy. 2. Hypertension. 3. Chronic obstructive pulmonary disease. 4. Hyperlipidemia. 5. Arthritis. 6. Gastroesophageal reflux disease. 7. Benign prostatic hyperplasia. DISCHARGE MEDICATION REGIMEN: 1. Potassium chloride 20 mEq by mouth daily. 2. Carafate 1 g by mouth 4 times daily. 3. Esomeprazole 40 mg by mouth daily. 4. Tessalon 100 mg by mouth every 8 hours. 5. Montelukast 10 mg by mouth daily. 6. Compazine 10 mg by mouth every 6 hours as needed for nausea. 7. Magnesium oxide 400 mg by mouth 2 times daily. 8. Clotrimazole 10 mg by mouth 3 times daily. 9. Amlodipine 10 mg by mouth daily. 10. Docusate 50 mg by mouth 3 times daily. 11. Finasteride 5 mg by mouth daily. 12. Pravastatin 20 mg by mouth daily. 13. Zofran 4 mg by mouth every 4 hours as needed for nausea. 14. Fluocinonide cream 1 ointment topical daily as needed for rash. 15. Tramadol 50 mg by mouth every 6 hours as needed for pain. 16. Lorazepam 0.5 mg by mouth 3 times daily. Medications stopped during this admission: 1. Lisinopril. 2. Hydrochlorothiazide. HISTORY OF PRESENT ILLNESS AND HOSPITAL SUMMARY: Please see the full history and physical by Dr. Johny Belcher for full details. Briefly, Mr. Espinosa is a 71- year-old male with past medical history as above including recently diagnosed lung cancer, who presented to the hospital with lightheadedness, weakness, decreased p.o. intake. He was noted to be dehydrated on exam and had AVNI on labs as well as hypokalemia and hypomagnesemia. It was felt that the patient's decreased p.o. intake likely resulted from the chemotherapy as well as recent radiation therapy. He was started on IV fluids. His potassium and magnesium were repleted. Patient had pancytopenia from his chemotherapy, received a unit of blood while here in the hospital with appropriate rise in his hemoglobin and hematocrit. Patient's renal function normalized and his appetite improved. It was felt that he would be able to maintain adequate p.o. intake as an outpatient. He was restarted on Norvasc, but his other antihypertensive medications were held until he follows up with his PCP. Patient had been on potassium supplementation in the past; however, he states the pills had aggravated his stomach. We will change his prescription to liquid form. For some reason, he cannot get this filled in pharmacy. He was instructed to have 1 to 2 bananas daily. He will need to follow up with Dr. Casillas as well as with Dr. Cain, his PCP. TIME SPENT: Total time spent on this discharge 35 minutes. This is a summary of the hospitalization. Please see the full medical record for further details. [id number]/[facility] #: [id number] MTDD
== END 2017-05-15 15:20 | disposition home or self-care (01) | DRG 682 ==
LOC: ED 20:31 → MED 23:33 → OBSVTOIN 05-14 14:38
PROVIDERS: ADMIT Internal Medicine; ATTEND Hospitalist
PROC: 30233N1 Transfusion of Nonautologous Red Blood Cells into Peripheral Vein, Percutaneous Approach (ICD-10-PCS; principal; 2017-05-14)
DX: N17.9 Acute kidney failure, unspecified (principal); D61.810 Antineoplastic chemotherapy induced pancytopenia; J44.9 Chronic obstructive pulmonary disease, unspecified; D64.81 Anemia due to antineoplastic chemotherapy; E86.0 Dehydration; C34.90 Malignant neoplasm of unspecified part of unspecified bronchus or lung; E83.42 Hypomagnesemia; I10 Essential (primary) hypertension; E78.5 Hyperlipidemia, unspecified; K21.9 Gastro-esophageal reflux disease without esophagitis; N40.0 Benign prostatic hyperplasia without lower urinary tract symptoms; K63.5 Polyp of colon; E73.9 Lactose intolerance, unspecified; G47.30 Sleep apnea, unspecified; M19.042 Primary osteoarthritis, left hand; M19.041 Primary osteoarthritis, right hand; M17.0 Bilateral primary osteoarthritis of knee; T45.1X5A Adverse effect of antineoplastic and immunosuppressive drugs, initial encounter; K20.8 Other esophagitis; Y84.2 Radiological procedure and radiotherapy as the cause of abnormal reaction of the patient, or of later complication, without mention of misadventure at the time of the procedure; E87.6 Hypokalemia; Z92.21 Personal history of antineoplastic chemotherapy; Z92.3 Personal history of irradiation; Z82.49 Family history of ischemic heart disease and other diseases of the circulatory system; Z80.1 Family history of malignant neoplasm of trachea, bronchus and lung; Z80.8 Family history of malignant neoplasm of other organs or systems; Z87.891 Personal history of nicotine dependence; Z88.5 Allergy status to narcotic agent; Z88.8 Allergy status to other drugs, medicaments and biological substances; Z91.048 Other nonmedicinal substance allergy status; Z98.42 Cataract extraction status, left eye; Z98.41 Cataract extraction status, right eye; Y92.9 Unspecified place or not applicable
CPT/HCPCS: A9270-GY; G0378; G0463; G8427; J1650; J2405; P9040

== ENCOUNTER 2017-07-06 11:07 | Day surgery (SDC) | payer MEDICARE, OTHER ==
[~2017-07-06 11:07] MED LIST changes: +Buffered Lidocaine 0.9% SYRIN* 5 ML/SYR SYRINGE INTRADERM ONE; -Buffered Lidocaine 1% SYRIN* 3 ML/SYR SYRINGE INTRADERM ONE; -Cisatracurium* 2 MG/ML MDV 5 ML ONE; +Dexamethasone IV* 4 MG/ML 1 ML (4 MG) IV SLOW PU ONE; +Famotidine IV* 10 MG/ML 2 ML (20 mg) IV ONE; -Glycopyrrolate IV* 0.2 MG/ML 1 ML VIAL ONE; +Levalbuterol 0.63MG/3ML NEB* UNIT OF USE INH ONE; -Lidocaine 2% PF* 5 ML VIAL ONE; -Neostigmine Methylsulfate* 2 MG/2 ML SYRINGE ONE; -Ondansetron INJ* 2 MG/ML VIAL IV PRN; -Propofol* 10 MG/ML 20 ML BTL IV PUSH ONE; -fentaNYL* 50 MCG/ML 2 ML VIAL (100 MCG VIAL) IV PRN; -fentaNYL* 50 MCG/ML 2 ML VIAL (100 MCG VIAL) ONE
[2017-07-06] MEDS ORDERED: Buffered Lidocaine 0.9% SYRIN* 5 ML/SYR SYRINGE ONE (11:14)
[2017-07-06] MEDS ORDERED: Levalbuterol 1.25MG/0.5ML NEB ONE (11:14)
[2017-07-06] MEDS ORDERED: Famotidine IV* 10 MG/ML 2 ML (20 mg) ONE (11:14)
[2017-07-06] MEDS ORDERED: Dexamethasone IV* 4 MG/ML 1 ML (4 MG) ONE (11:14)
[2017-07-06] MEDS ORDERED: fentaNYL* 50 MCG/ML 5 ML VIAL (250 MCG VIAL) ONE (12:09)
[2017-07-06] MEDS ORDERED: Midazolam* 1 MG/ML 2 ML VIAL (2 MG) ONE (12:09)
[2017-07-06] MEDS ORDERED: Propofol* 10 MG/ML 20 ML BTL IV PUSH ONE (12:10)
[2017-07-06] MEDS ORDERED: Ondansetron INJ* 2 MG/ML VIAL ONE (12:10)
[2017-07-06] MEDS ORDERED: Lidocaine 2% PF * 5 ML VIAL ONE (12:10)
[2017-07-06] MEDS ORDERED: EPHEDrine (Pressors)* 50 MG/ML VIAL ONE (13:17)
[2017-07-06 14:49] VITALS: BP 132/62
--- NOTE | 2017-07-07 11:59 | PRO ---
BRONCHOSCOPY REPORT: DATE OF PROCEDURE: 07/06/17 PROCEDURE PERFORMED BY: Shanon Liao MD ANESTHESIOLOGIST: Dr. Borjas, refer to anesthesiologist's note for further details. ANESTHESIA: General anesthesia. PROCEDURE PERFORMED: Bronchoscopy with endobronchial ultrasound-guided fine needle aspiration of L4 and station 7 lymph node. DESCRIPTION OF PROCEDURE: Informed consent was obtained from the patient prior to the procedure after all the risks and benefits were thoroughly explained. 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 He was scheduled for EBUS guided biopsy of L4 lymph node. Time-out was agreed on by attending staff. The patient was placed supine on the operating table. The patient was intubated with size 8.0 endotracheal tube. Flexible bronchoscopy was utilized for airway inspection. ET tube positioning was confirmed to be 2 cm above the level of court. Bronchoscope was then advanced into the right bronchial tree, which was inspected. No endobronchial lesions were noted, thin white secretions were noted and was suctioned out. Bronchoscope was then advanced into the left bronchial tree, which was inspected. No endobronchial lesions were noted. Thin white secretions were noted and were suctioned out. Bronchoscope was then withdrawn and EBUS bronchoscope was inserted. Station L4 lymph node was accessed with 8 passes. Adequate lymphatic tissue was noted and malignant cells noted. Specimen was placed in CytoLyt for further testing. Station 7 lymph node was accessed with two passes. No malignant cells were noted. The patient tolerated the procedure well. Specimen was sent to lab for further testing. The patient was extubated and was seen in Recovery in optimal condition. [id number]/[facility] #: [id number] [facility]
== END 2017-07-06 15:05 | disposition home or self-care (01) ==
LOC: OR 11:07
PROVIDERS: ATTEND Internal Medicine
DX: C34.92 Malignant neoplasm of unspecified part of left bronchus or lung (principal); J44.9 Chronic obstructive pulmonary disease, unspecified; Z87.891 Personal history of nicotine dependence; I10 Essential (primary) hypertension; M19.90 Unspecified osteoarthritis, unspecified site
CPT/HCPCS: 88172; 88173; 88305; 88342; 88360; A9270-GY; J1100; J2250; J2405; J2704; J3010

== ENCOUNTER 2017-11-29 06:59 | Inpatient (IN) | payer MEDICARE, OTHER ==
--- NOTE | 2017-11-18 21:01 | HP ---
HISTORY AND PHYSICAL: DATE OF ADMISSION/SURGERY: 11/29/17 SURGEON: Kaci Thomas MD * (DICTATED BY GWNE GONZALEZ) PROCEDURE: Right total knee arthroplasty. CHIEF COMPLAINT: Right knee pain. HISTORY OF PRESENT ILLNESS: Mr. Espinosa is a 72-year-old gentleman with complaints of right knee pain. He has failed conservative management and elected to proceed with a right total knee arthroplasty, which is scheduled for 11/29/[address] Thomas. PAST MEDICAL HISTORY: Hypertension, lung cancer, COPD, high cholesterol, GERD, BPH, and anemia. PAST SURGICAL HISTORY: Right knee arthroscopy, left wrist de Quervain's release , deviated septum, cystoscopy with resection and bladder lesion, and cataract removal. CURRENT MEDICATIONS: 1. Lisinopril 20 mg daily. 2. Tramadol 50 mg every 6 hours as needed. 3. Omeprazole 40 mg daily. 4. Finasteride 5 mg daily. 5. Fluocinonide 0.05%. 6. Montelukast sodium 10 mg q.h.s. 7. Pravastatin sodium 20 mg daily. ALLERGIES: NAPROXEN, NORCO, SPIRIVA, CLOTRIMAZOLE. FAMILY HISTORY: Lung and brain cancer, and heart disease. SOCIAL HISTORY: This is a 72-year-old gentleman, lives with his . He does not smoke or use drugs. Uses occasional alcohol. He is a former smoker, quit in 1995. REVIEW OF SYSTEMS: A complete 14-point review of systems was reviewed with the patient. It is positive for lung cancer with shortness of breath, COPD, GERD and anemia. He denies history of DVT, PE, hepatitis C, HIV or anesthesia problems. PHYSICAL EXAMINATION GENERAL: He is well developed, well nourished, in no acute distress. VITAL SIGNS: He stands 5 feet 8 inches tall, weighs 162 pounds. His blood pressure is 132/84, his heart rate is 86. HEENT: Normocephalic, atraumatic. NECK: Supple. No palpable lymph nodes. PULMONARY: The lungs are clear to auscultation bilaterally. CARDIO: Regular rate and rhythm. Strong S1, S2. ABDOMEN: Soft, nontender, and nondistended. MUSCULOSKELETAL: Right lower extremity, the skin is intact. There are no open wounds or abrasions. He has a mild effusion. He has some tenderness over the medial and lateral joint line. 10 to 120 degrees of flexion. No varus or valgus instability. 2+ dorsalis pedis pulses. Lower extremity muscle group strengths are intact at 5/5. NEUROLOGIC: He is alert and oriented x3. ASSESSMENT AND PLAN: Mr. Espinosa is a 72-year-old gentleman with severe end- stage osteoarthritis of the right knee. He has failed conservative management and elected to proceed with a right total knee arthroplasty, which is scheduled for 11/29/[address] Thomas discussed the risks and benefits of the surgery at today's visit and all of his questions were answered. He will follow up with Dr. Thomas 2 weeks after the surgery. GWEN GONZALEZ [id number]/[facility] #: [id number] MTDD
[~2017-11-29 06:59] MED LIST changes: -Dexamethasone IV* 4 MG/ML 1 ML (4 MG) IV SLOW PU ONE; -Famotidine IV* 10 MG/ML 2 ML (20 mg) IV ONE; -Levalbuterol 0.63MG/3ML NEB* UNIT OF USE INH ONE
[2017-11-29] MEDS ORDERED: ceFAZolin 2 GM PREMIX (*) 2 GM/50 ML BAG IVPB ONE (07:35)
[2017-11-29] MEDS ORDERED: Buffered Lidocaine 0.9% SYRIN* 5 ML/SYR SYRINGE ONE (07:35)
[2017-11-29] MEDS ORDERED: Propofol* 10 MG/ML 20 ML BTL IV PUSH ONE (09:15)
[2017-11-29] MEDS ORDERED: Midazolam* 1 MG/ML 2 ML VIAL (2 MG) ONE ×2 (09:15→09:39)
[2017-11-29] MEDS ORDERED: Atracurium* 10 MG/ML 10 ML VIAL ONE (09:15)
[2017-11-29] MEDS ORDERED: fentaNYL* 50 MCG/ML 2 ML VIAL (100 MCG VIAL) ONE ×3 (09:15→13:59)
[2017-11-29] MEDS ORDERED: Bupivacaine 0.25% SDV* 30 ML ONE (09:24)
[2017-11-29] MEDS ORDERED: Dexamethasone IV* 4 MG/ML 1 ML (4 MG) ONE (10:21)
[2017-11-29] MEDS ORDERED: Gentamicin ADULT (*) 40 MG/ML VIAL ONE (10:43)
[2017-11-29] MEDS ORDERED: Cyclobenzaprine TAB* 10 MG PO PRN (12:22)
[2017-11-29] MEDS ORDERED: Acetaminophen TAB* 325 MG PO PRN (12:22)
[2017-11-29] MEDS ORDERED: oxyCODONE/Acetamin 5/325 MG* TAB PO PRN (12:22)
[2017-11-29] MEDS ORDERED: Magnesium Hydroxide LIQ* 30 ML UDC PO PRN (12:22)
[2017-11-29] MEDS ORDERED: Ondansetron INJ* 2 MG/ML VIAL IV PRN ×2 (12:22→13:54)
[2017-11-29] MEDS ORDERED: Bisacodyl SUPP* 10 MG SUPP PR PRN (12:22)
[2017-11-29] MEDS ORDERED: diPHENhydraMINE IV* 50 MG/ML 1 ml VIAL (BENADRYL) IV PRN (12:22)
[2017-11-29] MEDS ORDERED: Ondansetron TAB* 4 MG PO PRN (12:22)
[2017-11-29] MEDS ORDERED: Polyethylene Glycol 3350* 17 GM PACKET PO PRN (12:22)
[2017-11-29] MEDS ORDERED: Morphine INJ* 2 MG/ML 1 ML SYRINGE (TWO MG - NEW SYRINGE VERSION) IV PRN (12:22)
[2017-11-29] MEDS ORDERED: Ondansetron INJ* 2 MG/ML VIAL ONE (13:23)
[2017-11-29] MEDS ORDERED: Naloxone* 0.4 MG/ML 1 ML VIAL IV PRN (13:54)
[2017-11-29] MEDS ORDERED: HYDROmorphone INJ* 1 MG/ML CARPUJECT SYRINGE IV PRN (13:54)
[2017-11-29] MEDS: fentaNYL* 50 MCG/ML 2 ML VIAL (100 MCG VIAL) IV PRN ×3 (14:04→14:44)
--- NOTE | 2017-11-29 14:23 | RAD ---
HISTORY: Status post right knee arthroplasty COMPARISONS: June 20, 2017 VIEWS: 3, Frontal and lateral views of the right knee FINDINGS: BONE DENSITY: Normal. BONES: The patient is status post right knee arthroplasty. There is no hardware failure or osteolysis. JOINTS: The patient is status post right knee arthroplasty. ALIGNMENT: There is no dislocation. SOFT TISSUES: There is postsurgical change to the soft tissues. OTHER FINDINGS: None. IMPRESSION: STATUS POST RIGHT KNEE ARTHROPLASTY
[2017-11-29] MEDS: oxyCODONE TAB* 5 MG TAB PO PRN (15:41)
[2017-11-29] MEDS ORDERED: Albuterol 2.5 MG/3 ML NEB.SOL* (0.083%) INH PRN (16:16)
[2017-11-29] MEDS ORDERED: Warfarin TAB(*) 6 MG PO ONE (17:00)
[2017-11-29] MEDS: Sucralfate TAB* 1 GM PO SCH (17:26)
[2017-11-29] MEDS: ceFAZolin 1 GM VIAL(*) 1 GM in NS 0.9% 50 ML* 50 ML IVPB SCH (19:37)
--- NOTE | 2017-11-29 20:32 | CONS ---
CC: Dr. Kaci Thomas; Dr. Ruy Cain; Dr. Thierry Benítez * CONSULTATION REPORT: DATE OF CONSULT: 11/29/17 REQUESTING PROVIDER: Dr. Kaci Thomas. PRIMARY CARE PROVIDER: Dr. Ruy Cain MY ATTENDING WHILE IN THE HOSPITAL: Dr. Thierry Benítez. REASON FOR CONSULTATION: Comanagement of comorbid medical conditions. HISTORY OF PRESENT ILLNESS: Mr. Espinosa is a 72-year-old gentleman with a past medical history significant for lung cancer, COPD, hypertension, hyperlipidemia , pancytopenia, GERD, and BPH who is status post right knee total knee arthroplasty. The patient was interviewed after being brought from the PACU where he had uneventful stay to his room. The patient states he feels good. The patient has pain 3/10 in his knee. The patient states he always feels dyspneic, but has no increased shortness of breath. The patient is satting at 95% on room air. The patient had an EBL of less than 100 and in the Surgery, received lactated Ringer's for fluids. The patient states that he is in remission from his lung cancer. His most recent appointment was on 09/30/17 and that he was declared cancer free, has not had any chemotherapy since then. The patient had a general anesthesia and nerve block for his surgery. The patient denies weight loss, worsening cough. The patient always has a cough which he states has been going on for years and that responds to Robitussin DM. The patient denies fevers, chills, nausea, vomiting, abdominal pain, constipation, diarrhea, recent illness, recent sick contacts, change in vision, headache, dizziness, numbness or tingling in his hands or feet, or other abnormality. There was difficulty inserting the patient's Bay catheter, so it had to be done by Urology and it is planned to be left in the patient at discharge for removal at the urologist's office. PAST MEDICAL HISTORY: Hypertension, lung cancer, COPD, high cholesterol, GERD, BPH, and pancytopenia. PAST SURGICAL HISTORY: Right knee arthroscopy, left wrist de Quervain's tenosynovitis release, deviated septum surgery, cystoscopy with resection of bladder lesion, and cataract removal. CURRENT MEDICATIONS: 1. Lisinopril 20 mg p.o. daily. 2. Tramadol 50 mg p.o. q. 6 hours as needed. 3. Esomeprazole 40 mg p.o. daily. 4. Finasteride 5 mg p.o. daily. 5. Amlodipine 10 mg p.o. daily. 6. Montelukast 10 mg p.o. q.h.s. 7. Pravastatin 20 mg p.o. daily. 8. Carafate 1 mg a.c. ALLERGIES: NAPROXEN, NORCO, SPIRIVA, CLOTRIMAZOLE. FAMILY HISTORY: The patient's parents are both . The patient has a family history significant for lung, brain cancer, and heart disease, but he cannot specify who had which. SOCIAL HISTORY: The patient lives with his . Has not smoked or drank frequently since 1995, though consumes occasional alcohol. Denies illicit drug use. The patient has 2 children. REVIEW OF SYSTEMS: A 14-point review of systems was reviewed, is negative except as stated in the HPI. PHYSICAL EXAMINATION: General: The patient is a 72-year-old pale male, who appears his stated age, and is sitting comfortably on bed, in no acute distress. Vital Signs: Temperature 96.8, pulse 83, respiratory rate 20, oxygen saturation 100% on room air, blood pressure 143/66. HEENT: Head normocephalic , atraumatic. Sclerae anicteric. No conjunctival injection. Nasal mucosa moist. Oral mucosa moist. No oropharyngeal erythema, exudate, or discharge. Neck: Supple, nontender. No lymphadenopathy. No supraclavicular lymphadenopathy. Cardiac: Regular rate and rhythm. No clicks, murmurs, gallops , or rubs. Pulses 2+ bilateral in dorsalis pedis, posterior tibialis, and radial areas. Respiratory: The patient has expiratory wheezes with prolonged expiratory phase intermittently throughout all of his lobes. Good air exchange bilaterally. Abdomen: Soft, nontender, nondistended. Bowel sounds present in all 4 quadrants. No hepato-splenomegaly. No abdominal bruits auscultated. Genitourinary: No CVA tenderness or suprapubic tenderness. Bay catheter is inserted, draining urine that is becoming clear but the urine in the bag is dark brown. Skin: Clean, dry, and intact except for a surgical incision which is covered by a large bulky dressing and a cooling unit on the patient's right knee. Neuro: Cranial nerves II through XII grossly intact. The patient is alert and oriented x3. No focal deficits. DIAGNOSTIC STUDIES/LAB DATA: Not available at this time. Studies: Knee x-ray shows status post right knee arthroplasty. ASSESSMENT AND PLAN: Impression: The patient is a 72-year-old male with a past medical history significant for lung cancer, in remission status post chemotherapy; hypertension; chronic obstructive pulmonary disease; high cholesterol; gastroesophageal reflux disease; benign prostatic hypertrophy; and pancytopenia, resolved; who is postop day 0 from a right total knee arthroplasty. 1. The patient has pain well controlled. The patient has not passed any flatus yet. The patient had a Bay which was inserted by Urology and will remain in place after discharge which will be removed by Urology as outpatient. 2. Lung cancer. The patient's lung cancer is in remission. The patient has no evidence of recurrent cancer such as lymphadenopathy, weight loss, increasing shortness of breath, or hemoptysis. The patient should follow up with his oncologist as outpatient. 3. Chronic obstructive pulmonary disease. Continue the patient's Singulair while in the hospital. The patient is wheezing on exam. We will have albuterol nebulizer available as needed. 4. Gastroesophageal reflux disease. Continue the patient's omeprazole and Carafate while in the hospital. 5. Benign prostatic hypertrophy. Continue the patient's finasteride while in the hospital. Bay inserted and will be removed as above. 6. Hyperlipidemia. Continue the patient's pravastatin while in the hospital. 7. Hypertension. We will continue the patient's lisinopril and amlodipine in the morning, withhold parameters. The patient is currently borderline hypertensive. We will monitor and dose antihypertensives sooner if needed. 8. Pancytopenia. The patient did not have recent preoperative lab work. His most recent labs are from 06/29/17. We will closely monitor patient's blood levels while in the hospital. The patient is not symptomatic of anemia at this time. 9. FEN: The patient will be continued on lactated Ringer's at 100 at this time. The patient will have regular diet while in the hospital and start on clear liquids as per primary team. 10. DVT prophylaxis: The patient will have Lovenox, an anticoagulant dose transitioning to warfarin. The patient will have INRs checked daily. DISPOSITION: The patient is admitted to inpatient with a plan for discharge home after he leaves the hospital. TIME SPENT: Approximately 60 minutes was spent on this consultation, 30 of which was spent [id number] with the patient obtaining history and physical and discussing treatment plan. Thank you very much for this consultation. GWEN BARRAZA [id number]/[facility] #: [id number] SAMMY
[2017-11-29] MEDS: oxyCODONE/Acetamin 5/325 MG* TAB PO PRN (20:59)
[2017-11-29] MEDS: Montelukast Sodium TAB* 10 MG PO SCH (21:00)
[2017-11-29] MEDS: Magnesium Hydroxide LIQ* 30 ML UDC PO SCH (21:00)
[2017-11-29] MEDS: Docusate CAP* 100 MG PO SCH (21:00)
[2017-11-29] MEDS ORDERED: Gentamicin ADULT (*) 40 MG/ML VIAL IM ONE (22:00)
[2017-11-29] MEDS ORDERED: Gentamicin ADULT (*) 160 MG in NS 0.9% 100 ML* 100 ML IVPB ONE (22:00)
[2017-11-30] MEDS: ceFAZolin 1 GM VIAL(*) 1 GM in NS 0.9% 50 ML* 50 ML IVPB SCH ×2 (03:50→11:48)
[2017-11-30 06:26] LABS: ABS Basophils 0 10^3/ul (0-0.2); ABS Eosinophils 0 10^3/ul (0-0.6); ABS Lymphocytes 0.4 10^3/ul (1.0-4.8); ABS Monocytes 0.8 10^3/ul (0-0.8); ABS Neutrophils 7.1 10^3/ul (1.5-7.7); ABS Nucleated RBC 0 10^3/ul; Eosinophil % 0 % (0-6); Hematocrit 28 % (42-52); Hemoglobin 9.7 g/dl (14.0-18.0); Lymphocyte % 4.7 % (25-47); Mean Corpuscular HGB Conc 35 g/dl (31-36); Mean Corpuscular Hemoglobin 30 pg (27-31); Mean Corpuscular Volume 88 fL (80-94); Mean Platelet Volume 8 um3 (7.4-10.4); Nucleated Red Blood Cells % 0; Platelet Count 116 10^3/ul (150-450); Red Blood Count 3.18 10^6/ul (4.0-5.4); Red Cell Distribution Width 14 % (10.5-15); White Blood Count 8.4 10^3/ul (3.5-10.8)
[2017-11-30 06:35] LABS: INR 1.02 (0.77-1.02)
[2017-11-30 06:39] LABS: EGFR Non-African American 78.7 (>60)
[2017-11-30] MEDS: oxyCODONE/Acetamin 5/325 MG* TAB PO PRN ×3 (07:43→20:50)
[2017-11-30] MEDS: Sucralfate TAB* 1 GM PO SCH ×3 (07:43→16:43)
[2017-11-30] MEDS: Magnesium Hydroxide LIQ* 30 ML UDC PO SCH ×2 (07:46→20:49)
[2017-11-30] MEDS: Finasteride TAB* 5 MG PO SCH (08:34)
[2017-11-30] MEDS: amLODIPine TAB* 5 MG PO SCH (08:34)
[2017-11-30] MEDS: Lisinopril TAB* 10 MG PO SCH (08:34)
[2017-11-30] MEDS: Docusate CAP* 100 MG PO SCH ×2 (08:34→20:49)
[2017-11-30] MEDS: Atorvastatin* 10 MG TAB PO SCH (08:34)
[2017-11-30] MEDS ORDERED: amLODIPine TAB* 5 MG PO SCH (09:00)
[2017-11-30] MEDS ORDERED: Lisinopril TAB* 10 MG PO SCH (09:00)
--- NOTE | 2017-11-30 10:00 | OP ---
CC: Dr. Cain; Dr. Thomas * DATE OF OPERATION: 11/29/17 - ROOM #343 DATE OF : 43 SURGEON: Jakub Garcia MD ANESTHESIOLOGIST: Dr. Carrero. ANESTHESIA: General. PRE-OP DIAGNOSES: Urethral stricture. POST-OP DIAGNOSIS: Urethral stricture and partial urinary retention. OPERATIVE PROCEDURE: Urethral dilatation, internal urethrotomy, and cystoscopy. COMPLICATIONS: None. CATHETER USED: A 23-Ecuadorean Bay. INDICATIONS: Roger Espinosa is a 72-year-old with a history of urethral stricture. He was in the operating room for a total knee replacement with Dr. Thomas and I was called by the operating room staff because of inability to place a Bay. OPERATIVE FINDINGS: 1. Severe stricture, urethral meatus. 2. Additional left severe stricture bulbar urethra. 3. Increased postvoid residual noted in bladder with multiple soft bladder calculi and small bladder diverticula. DESCRIPTION OF PROCEDURE: After induction of the general anesthetic, the patient was placed in dorsal lithotomy position. Sequential compression devices were in place and functioning. Initial evaluation revealed a severe stricture at the urethral meatus with near total occlusion of the meatus. This was carefully dilated using the urethral sounds to 28-Ecuadorean. Next, internal urethrotome was introduced. In the bulbar urethra, there was additional less severe strictures, which were incised at the 12 o'clock position. Next, a cystoscope was introduced and the bladder was thoroughly examined. There was cloudy increased residual urine noted which was sent for urine culture. There were multiple soft bladder calculi, which were irrigated out. Few small diverticula were noted, but there was no evidence of any suspicious bladder lesions noted. Visualization was somewhat impaired due to the cloudy residual and the multiple soft bladder calculi. At the end of the procedure, once the bladder had been thoroughly washed out, 24-Ecuadorean silicon Bay was introduced without difficulty and connected to a drainage bag. The patient tolerated the procedure satisfactorily and was transferred to the operating table for the knee replacement by Dr. Thomas. [id number]/[facility] #: [id number] MTDD
--- NOTE | 2017-11-30 11:24 | PN ---
Progress Note - Progress Note Date of Service: 11/30/17 SOAP: Subjective: []Patient seen at OOB in chair. RLE pain rated 1/10. Denies CP, SOB, dizziness, nausea, abd/suprapubic pain or leg numbness. Has briceno in place, aware that this will need to remain in place at DC, with f/u with urology Dr. Rosas outpatient for urethral stricture. Objective: []General: Well appearing, NAD RLE: Drain pulled with tip intact and without complication today by Dr. Thomas. Dressing CDI. DF/PF intact. DP/PT 2+ BL LE: Calves supple and nontender without erythema, edema or palpable cords. Negative alberto's sign. Vital Signs Temp 97.9 F 11/30/17 07:29 Pulse 85 11/30/17 08:28 Resp 18 11/30/17 10:26 BP 141/52 11/30/17 07:29 Pulse Ox 98 11/30/17 08:28 Intake & Output 11/29/17 11/30/17 11/30/17 18:59 06:59 18:59 Intake Total 850 1690 Output Total 350 1650 0 Balance 500 40 0 Weight 158 lb 3.2 oz Intake: IV Fluids 150 766 ANCEF 2 GM 50 GENTAMYACIN 160MG 100 LR 766 IVPB 204 ABX - CEFAZOLIN 100 ABX - GENTAMYCIN 104 Oral 700 720 Output: Urine 150 Briceno 1650 0 Autotransfusion Amount 200 Other: # Bowel Movements 0 Assessment: []POD 1 s/p right total knee arthroplasty 11/29/17, Dr Thomas. Plan: []WBAT PT/OT lovenox, 6 mg coumadin today
[2017-11-30] MEDS: Enoxaparin(*) 40 MG/0.4 ML SYR SUBCUT SCH (11:47)
--- NOTE | 2017-11-30 12:17 | OP ---
CC: Dr. Garcia * DATE OF OPERATION: 11/29/17 - ROOM #343 DATE OF : 43 ATTENDING SURGEON: Kaci Thomas MD. PIGS FEET FINISHER: GWEN Castro. Mr. Lake did help throughout the procedure with preparation of the leg, wound retraction, manipulation of the knee, and wound closure. ANESTHESIOLOGIST: Dr. Carrero. ANESTHESIA TYPE: Spinal. PRE-OP DIAGNOSIS: Severe endstage degenerative osteoarthritis of the right knee joint. POST-OP DIAGNOSIS: Severe endstage degenerative osteoarthritis of the right knee joint. OPERATIVE PROCEDURE: Right total knee arthroplasty. TOURNIQUET TIME: 55 minutes. ESTIMATED BLOOD LOSS: 300 cc. COMPLICATIONS: None. SPECIMEN: Bone and cartilage from the right knee joint sent to Pathology. HARDWARE USED: This is cemented Garcia [employer] total knee arthroplasty hardware with two packages of Simplex cement. For the femur, a right size 7 Legion posterior stabilized femoral component. For the tibia, a size 5 Suzie II tibial baseplate. For the insert, a 9-mm posterior stabilized articular insert size 5/6. For the patella, a 35-mm 3-peg all-poly patella. BRIEF HISTORY/INDICATIONS: Mr. Espinosa is a 72-year-old gentleman with years of increasingly severe right knee pain. The patient failed conservative treatment with anti-inflammatories, pain medications, intra-articular injections, and physical therapy. He elected to undergo right total knee arthroplasty due to continued pain and decreased quality of life. Radio-graphs showed [id number] arthritis. Informed consent was obtained from the patient. He understood the risk of surgery included but were not limited to bleeding, infection, damage to nearby structures, continued pain, need for further surgery, intraoperative fracture, nerve palsy, hardware failure or loosening, knee stiffness, loss of motion, stroke, heart attack, blood clot, and . He wished to proceed. INTRAOPERATIVE FINDINGS: Intraoperatively, the patient was noted to have urethral stricture. Dr. Garcia of urology was called and they performed cystoscopy in order to place a Bay. He felt that it was safe to proceed with the planned right total knee arthroplasty. He did recommend 2 doses of gentamicin. The patient's knee was noted to have tricompartmental loss of cartilage with severe arthritis. He had a 20 degree flexion contracture to begin the case. He had significant medial soft tissue contracture. DESCRIPTION OF PROCEDURE: Mr. Espinosa was identified in the preanesthesia unit. His right lower extremity was marked as the correct operative side. Informed consent was signed and placed in the chart. The patient was taken to the operating room and placed under spinal anesthesia. A coude Bay could not be placed. Dr. Garcia of Urology was consulted and did place a Bay catheter after cystoscopy. Dr. Garcia felt that it was safe to continue with the procedure and did recommend 2 doses of gentamicin as well as leaving the Bay in place until after discharge and outpatient followup with urology. Tourniquet was placed on the right thigh. Right lower extremity was prepped and draped in the usual sterile fashion. Preop time- out was made to correctly identify the patient's side and site. Appropriate perioperative antibiotics were given within 1 hour of incision. A 12-cm midline incision was made with a 10 blade and carried down to the extensor mechanism. A new 10 blade was used to make a standard medial parapatellar arthrotomy. The patella was subluxed laterally. Electrocautery was used to subperiosteally elevate soft tissue off the superomedial tibia. A large amount of medial tibial plateau osteophyte was carefully removed using rongeur. The knee was flexed up. The anterior horn of the lateral meniscus and ACL were sharply released. A drill was used to enter the distal femur. Intramedullary distal femoral cutting guide was pinned on the distal femur. 11 mm of distal femoral dome was carefully removed with an oscillating saw. Next, the external rotation guide was pinned on the distal femur. The distal femur was sized to a size 7. Size 7 multi-cutting jig was pinned on the distal femur. An oscillating saw was used to make the appropriate 4 chamfer cuts. The PCL was completely released. The tibia was subluxed anteriorly. Extramedullary tibial cutting guide was pinned on the proximal tibia. The oscillating saw was used to make the proximal tibial cut perpendicular to the mechanical axis of the tibia. The bone was carefully removed. The knee was brought out into full extension. A spacer block had fit with the knee in full extension, but there was medial ligament tightness. Electrocautery was used to elevate soft tissue along the proximal tibia medially. Any remaining osteophytes were carefully removed. Medial and lateral ligamentous balancing was improved. Flexion and extension gaps were well balanced. The knee was flexed up. Lamina preformer impregnated fabrics was placed both medially and laterally. Any remaining meniscus was carefully removed using electrocautery. Curved osteotome was used to remove posterior osteophytes. The tibial tray and drop rods showed satisfactory tibial cut once again. A right size 7 femoral trial was impacted onto the distal femur and had good fit. The box for the posterior stabilized implant was prepared using a reamer and box cut osteotome. A size 5 tibial tray with a 9-mm insert trial was placed and the knee was taken through a range of motion. The knee had full extension to 125 degrees of flexion with satisfactory patellofemoral tracking. The patella was everted. 9 mm of patellar bone and cartilage were carefully removed using an oscillating saw. The patella was sized to a size 35. The 3-peg holes were drilled through the size 35 guide. A 35 trial patella was placed and the knee was taken through a range of motion. The patellofemoral tracking was satisfactory. All trials were carefully removed. The tibia was subluxed anteriorly and sized to a size 5. Proximal tibia was prepared using a size 5 keel punch. All bony cut surfaces were copiously irrigated with sterile saline and dried. Final implants were cemented into place starting with the tibia followed by the femur and last the patella. A 9 mm insert trial was placed while the knee was brought out into full extension. The tourniquet was turned down at 55 minutes. The cement was allowed to fully cure. The knee was copiously irrigated with sterile saline. Electrocautery was used to obtain meticulous hemostasis. Once the cement had fully cured, the insert trial was removed. Any excess cement was removed from around the capsule and hardware. Final insert chosen was a 9-mm posterior stabilized articular insert size 5/6. This was locked into position on the tibial tray without difficulty. Stability of the insert was checked and rechecked and noted to be stable. The knee was copiously irrigated with sterile saline. The extensor mechanism was closed using interrupted #1 Vicryls over a medium Hemovac drain. The rest of the incision was closed in a layered fashion using 0 and 2-0 Vicryls. The skin was closed using running 3-0 nylon suture. Sterile Xeroform, 4x4s, and Webril were used to cover the incision. Lan wrap and cold pack were placed over this. The patient's anesthesia was reversed without difficulty. She was taken to the PACU in stable condition. Intended weightbearing will be weightbearing as tolerated. Intended DVT prophylaxis will be Coumadin with a Lovenox bridge. [id number]/[facility] #: [id number] MTDD
--- NOTE | 2017-11-30 16:33 | PN ---
Subjective Date of Service: 11/30/17 Interval History: Patient has no complaints. Patient has no pain in his knee at rest, states that it became progressively more severe when he sat in the chair for 2 hours but then resolved. Patient denies CP, SOB, N/V, abdominal pain, F/C, diarrhea, constipation. Patient still has a briceno in which he is planned to be discharged with. Family History: Unchanged from Admission Social History: Unchanged from Admission Past Medical History: Unchanged from Admission Objective Active Medications: Acetaminophen (Tylenol Tab*) 650 mg PO Q4H PRN PRN Reason: PAIN OR TEMPERATURE Albuterol (Ventolin 2.5 Mg/3 Ml Neb.Yennifer*) 2.5 mg INH Q4H PRN PRN Reason: SOB/WHEEZING Amlodipine Besylate (Norvasc Tab*) 10 mg PO DAILY [facility] Last Admin: 11/30/17 08:34 Dose: 10 mg Atorvastatin Calcium (Lipitor*) 5 mg PO QAM [facility] PRN Reason: Protocol Last Admin: 11/30/17 08:34 Dose: 5 mg Bisacodyl (Dulcolax Supp*) 10 mg [place] DAILY PRN PRN Reason: constipation Cyclobenzaprine HCl (Flexeril Tab*) 10 mg PO TID PRN PRN Reason: SPASMS Diphenhydramine HCl (Benadryl Iv*) 12.5 mg IV Q6H PRN PRN Reason: PRURITIS Docusate Sodium (Colace Cap*) 100 mg PO BID [facility] Last Admin: 11/30/17 08:34 Dose: 100 mg Enoxaparin Sodium (Lovenox(*)) 40 mg SUBCUT Q24H [facility] Last Admin: 11/30/17 11:47 Dose: 40 mg Finasteride (Proscar Tab*) 5 mg PO QAM [facility] Last Admin: 11/30/17 08:34 Dose: 5 mg Lactated Ringer's (Lactated Ringers 1000 Ml Bag*) 1,000 mls @ 100 mls/hr IV PER RATE [facility] Lactulose (Lactulose*) 30 ml PO Q6H PRN PRN Reason: constipation Lisinopril (Prinivil Tab*) 20 mg PO QAM [facility] Last Admin: 11/30/17 08:34 Dose: 20 mg Magnesium Hydroxide (Milk Of Magnesia Liq*) 30 ml PO BID [facility] Last Admin: 11/30/17 07:46 Dose: Not Given Magnesium Hydroxide (Milk Of Magnesia Liq*) 30 ml PO Q6H PRN PRN Reason: constipation Montelukast Sodium (Singulair Tab*) 10 mg PO BEDTIME [facility] Last Admin: 11/29/17 21:00 Dose: 10 mg Morphine Sulfate (Morphine Inj (Syringe)*) 2 mg IV Q2H PRN PRN Reason: PAIN Last Admin: 11/29/17 15:40 Dose: 2 mg Ondansetron HCl (Zofran Inj*) 4 mg IV Q6H PRN PRN Reason: nausea Ondansetron HCl (Zofran Tab*) 4 mg PO Q6H PRN PRN Reason: NAUSEA Oxycodone HCl (Roxycodone Tab*) 10 mg PO Q4H PRN PRN Reason: SEVERE PAIN Last Admin: 11/29/17 15:41 Dose: 10 mg Oxycodone/Acetaminophen (Percocet 5/325 Tab*) 2 tab PO Q4H PRN PRN Reason: PAIN Last Admin: 11/30/17 11:47 Dose: 2 tab Oxycodone/Acetaminophen (Percocet 5/325 Tab*) 1 tab PO Q4H PRN PRN Reason: PAIN Pharmacy Profile Note (Coumadin Daily Reminder*) 1 note FOLLOW UP 1700 [facility] Last Admin: 11/30/17 15:51 Dose: 1 note Polyethylene Glycol/Electrolytes (Miralax*) 17 gm PO DAILY PRN PRN Reason: Constipation Sucralfate (Carafate*) 1 gm PO AC [facility] Last Admin: 11/30/17 11:47 Dose: 1 gm Warfarin Sodium (Coumadin Tab(*)) 6 mg PO ONCE@1700 ONE PRN Reason: Protocol Stop: 11/30/17 17:01 Vital Signs - 8 hr 11/30/17 11/30/17 11/30/17 08:28 10:26 11:38 Temperature 98.5 F Pulse Rate 85 74 Respiratory 16 18 16 Rate Blood Pressure 122/51 (mmHg) O2 Sat by Pulse 98 99 Oximetry 11/30/17 11/30/17 11/30/17 11:47 14:24 15:11 Temperature 98.1 F Pulse Rate 97 Respiratory 18 18 18 Rate Blood Pressure 135/55 (mmHg) O2 Sat by Pulse 99 Oximetry 11/30/17 16:00 Temperature Pulse Rate Respiratory Rate Blood Pressure (mmHg) O2 Sat by Pulse 99 Oximetry Oxygen Devices in Use Now: None Appearance: Patient is a 72yo male who appears stated age and is sitting in the bed in NAD. Eyes: No Scleral Icterus, PERRLA Ears/Nose/Mouth/Throat: NL Teeth, Lips, Gums, Clear Oropharnyx, Mucous Membranes Moist Neck: NL Appearance and Movements; NL JVP, Trachea Midline Respiratory: Symmetrical Chest Expansion and Respiratory Effort, - - Slight Wheezes scattered throughout. Cardiovascular: NL Sounds; No Murmurs; No JVD, RRR, No Edema Abdominal: NL Sounds; No Tenderness; No Distention, No Hepatosplenomegaly Lymphatic: No Cervical Adenopathy Extremities: No Edema, No Clubbing, Cyanosis, - - Pulses 2+ in B/L LE. Strength WNL and symmetrical. Skin: No Nodules or Sclerosis, - - Right knee surgical incision covered with bulky dressing. Neurological: Alert and Oriented x 3, NL Sensation, NL Muscle Strength and Tone , - - CN II-XII Result Diagrams: 11/30/17 06:09 11/30/17 06:09 Microbiology and Other Data: Microbiology 11/29/17 10:56 Urine Culture - Final Urine No Growth (<1,000 CFU/mL) Assess/Plan/Problems-Billing Assessment: - Patient Problems (1) Post-operative state Current Visit: Yes Status: Acute Code(s): Z98.890 - OTHER SPECIFIED POSTPROCEDURAL STATES SNOMED Code(s): 96289533 Comment: Patient is POD#1 from RTKA. Patient's pain is well controlled. No BM but flatus. H/H stable. Briceno in place, plan for D/C with briceno and F/U with urology. (2) Lung cancer Current Visit: Yes Status: Acute Code(s): C34.90 - MALIGNANT NEOPLASM OF UNSP PART OF UNSP BRONCHUS OR LUNG SNOMED Code(s): 659832577 Comment: Cancer Free. No chemo since September 2017. No s/s or recurrence. (3) HTN (hypertension) Current Visit: Yes Status: Acute Code(s): I10 - ESSENTIAL (PRIMARY) HYPERTENSION SNOMED Code(s): 90924596 Comment: Normotensive on home medications. (4) COPD (chronic obstructive pulmonary disease) Current Visit: Yes Status: Acute Code(s): J44.9 - CHRONIC OBSTRUCTIVE PULMONARY DISEASE, UNSPECIFIED SNOMED Code(s): 44492110 Comment: On no inhalers at home. Slight wheezing. Not in exacerbation. On RA. Duoneb PRN. (5) BPH (benign prostatic hyperplasia) Current Visit: Yes Status: Acute Code(s): N40.0 - BENIGN PROSTATIC HYPERPLASIA WITHOUT LOWER URINRY TRACT SYMP SNOMED Code(s): 529464518 Comment: Briceno placed by urology. Will keep in and have removed with Urology outpatient. (6) GERD (gastroesophageal reflux disease) Current Visit: Yes Status: Acute Code(s): K21.9 - GASTRO-ESOPHAGEAL REFLUX DISEASE WITHOUT ESOPHAGITIS SNOMED Code(s): 714606006 Comment: Continue omeprazole and carafate. (7) Pancytopenia Current Visit: No Status: Acute Code(s): D61.818 - OTHER PANCYTOPENIA SNOMED Code(s): 010089706 Comment: Resolved. Chemo related. (8) DVT prophylaxis Current Visit: Yes Status: Acute Code(s): BFC5910 - SNOMED Code(s): 006245649 Comment: Lovenox to warfarin. (9) Full code status Current Visit: Yes Status: Acute Code(s): Z78.9 - OTHER SPECIFIED HEALTH STATUS SNOMED Code(s): 410117865 Status and Disposition: Patient is admitted inpatient. Plan for [facility]/Home.
[2017-11-30] MEDS ORDERED: Warfarin TAB(*) 6 MG PO ONE (17:00)
[2017-11-30] MEDS: Montelukast Sodium TAB* 10 MG PO SCH (20:50)
[2017-12-01] MEDS: oxyCODONE/Acetamin 5/325 MG* TAB PO PRN ×3 (00:41→13:40)
[2017-12-01 05:40] LABS: Hematocrit 25 % (42-52); Hemoglobin 8.6 g/dl (14.0-18.0); Mean Platelet Volume 8 um3 (7.4-10.4); Platelet Count 102 10^3/ul (150-450)
[2017-12-01 05:57] LABS: INR 1.42 (0.77-1.02)
[2017-12-01] MEDS: Sucralfate TAB* 1 GM PO SCH ×3 (08:04→16:56)
--- NOTE | 2017-12-01 08:15 | PN ---
Progress Note - Progress Note Date of Service: 12/01/17 SOAP: Subjective: []Patient seen at bedside. He feels well and RLE pain is tolerable. Denies CP, SOB, dizziness, nausea, abd pain, suprapubic pain. Objective: [] Vital Signs Temp 98.1 F 12/01/17 03:51 Pulse 81 12/01/17 03:51 Resp 18 12/01/17 07:22 BP 120/47 12/01/17 03:51 Pulse Ox 92 12/01/17 03:51 Intake & Output 11/30/17 12/01/17 12/01/17 18:59 06:59 18:59 Intake Total 580 750 Output Total 1700 1900 Balance -1120 -1150 Intake: IVPB 105 ABX - CEFAZOLIN 55 LR 50 Oral 475 750 Output: Bay 1700 1900 Other: Estimated Void Large # Bowel Movements 0 # Voids 1 Laboratory Last Values WBC 8.4 10^3/ul (3.5-10.8) 11/30/17 06:09 RBC 3.18 10^6/ul (4.0-5.4) L 11/30/17 06:09 Hgb 8.6 g/dl (14.0-18.0) L 12/01/17 05:09 Hct 25 % (42-52) L 12/01/17 05:09 MCV 88 fL (80-94) 11/30/17 06:09 MCH 30 pg (27-31) 11/30/17 06:09 MCHC 35 g/dl (31-36) 11/30/17 06:09 RDW 14 % (10.5-15) 11/30/17 06:09 Plt Count 102 10^3/ul (150-450) L 12/01/17 05:09 MPV 8 um3 (7.4-10.4) 12/01/17 05:09 Neut % (Auto) 85.2 % (38-83) H 11/30/17 06:09 Lymph % (Auto) 4.7 % (25-47) L 11/30/17 06:09 [place] % (Auto) 9.9 % (1-9) H 11/30/17 06:09 Eos % (Auto) 0 % (0-6) 11/30/17 06:09 Baso % (Auto) 0.2 % (0-2) 11/30/17 06:09 Absolute Neuts (auto) 7.1 10^3/ul (1.5-7.7) 11/30/17 06:09 Absolute Lymphs (auto) 0.4 10^3/ul (1.0-4.8) L 11/30/17 06:09 Absolute Monos (auto) 0.8 10^3/ul (0-0.8) 11/30/17 06:09 Absolute Eos (auto) 0 10^3/ul (0-0.6) 11/30/17 06:09 Absolute Basos (auto) 0 10^3/ul (0-0.2) 11/30/17 06:09 Absolute Nucleated RBC 0 10^3/ul 11/30/17 06:09 Nucleated RBC % 0 11/30/17 06:09 INR (Anticoag Therapy) 1.42 (0.77-1.02) H 12/01/17 05:09 Sodium 136 mmol/L (133-145) 11/30/17 06:09 Potassium 4.5 mmol/L (3.5-5.0) 11/30/17 06:09 Chloride 102 mmol/L (101-111) 11/30/17 06:09 Carbon Dioxide 29 mmol/L (22-32) 11/30/17 06:09 Anion Gap 5 mmol/L (2-11) 11/30/17 06:09 BUN 18 mg/dL (6-24) 11/30/17 06:09 Creatinine 0.94 mg/dL (0.67-1.17) 11/30/17 06:09 Est GFR ( Amer) 101.2 (>60) 11/30/17 06:09 Est GFR (Non-Af Amer) 78.7 (>60) 11/30/17 06:09 BUN/Creatinine Ratio 19.1 (8-20) 11/30/17 06:09 Glucose 123 mg/dL (70-100) H 11/30/17 06:09 Calcium 8.9 mg/dL (8.6-10.3) 11/30/17 06:09 General:Well appear, NAD RLE: Dressing changed by Dr. Thomas this morning without complication. Dressing CDI. DF/PF intact. DP/PT 2+ BL LE: calves supple and nontender without erythema, edema or palpable cords. Assessment: []POD 2 s/p right total knee arthroplasty 11/29/17, Dr Thomas. Plan: []WBAT PT/OT lovenox, 4 mg coumadin today DC 12/02 Bay to remain in place at discharge. Urology F/U as outpatient ( Patient aware )
[2017-12-01] MEDS: Docusate CAP* 100 MG PO SCH ×2 (09:20→20:50)
[2017-12-01] MEDS: Finasteride TAB* 5 MG PO SCH (09:20)
[2017-12-01] MEDS: amLODIPine TAB* 5 MG PO SCH (09:20)
[2017-12-01] MEDS: Magnesium Hydroxide LIQ* 30 ML UDC PO SCH ×2 (09:20→20:50)
[2017-12-01] MEDS: Atorvastatin* 10 MG TAB PO SCH (09:21)
[2017-12-01] MEDS: Lisinopril TAB* 10 MG PO SCH (09:21)
[2017-12-01] MEDS: Enoxaparin(*) 40 MG/0.4 ML SYR SUBCUT SCH (11:56)
[2017-12-01] MEDS ORDERED: Warfarin TAB(*) 4 MG PO ONE (17:00)
[2017-12-01] MEDS: oxyCODONE TAB* 5 MG TAB PO PRN (17:12)
--- NOTE | 2017-12-01 17:59 | PN ---
Subjective Date of Service: 12/01/17 Interval History: Feeling well. Pain well tolerated in right knee. BP stable. Former smoker 40 years, quit 1995. Planned discharge tomorrow. Family History: Unchanged from Admission Social History: Unchanged from Admission Past Medical History: Unchanged from Admission Objective Active Medications: Acetaminophen (Tylenol Tab*) 650 mg PO Q4H PRN PRN Reason: PAIN OR TEMPERATURE Albuterol (Ventolin 2.5 Mg/3 Ml Neb.Yennifer*) 2.5 mg INH Q4H PRN PRN Reason: SOB/WHEEZING Amlodipine Besylate (Norvasc Tab*) 10 mg PO DAILY [facility] Last Admin: 12/01/17 09:20 Dose: 10 mg Atorvastatin Calcium (Lipitor*) 5 mg PO QAM [facility] PRN Reason: Protocol Last Admin: 12/01/17 09:21 Dose: 5 mg Bisacodyl (Dulcolax Supp*) 10 mg [place] DAILY PRN PRN Reason: constipation Cyclobenzaprine HCl (Flexeril Tab*) 10 mg PO TID PRN PRN Reason: SPASMS Last Admin: 12/01/17 10:03 Dose: 10 mg Diphenhydramine HCl (Benadryl Iv*) 12.5 mg IV Q6H PRN PRN Reason: PRURITIS Docusate Sodium (Colace Cap*) 100 mg PO BID [facility] Last Admin: 12/01/17 09:20 Dose: 100 mg Enoxaparin Sodium (Lovenox(*)) 40 mg SUBCUT Q24H [facility] Last Admin: 12/01/17 11:56 Dose: 40 mg Finasteride (Proscar Tab*) [facility] Last Admin: 12/01/17 09:20 Dose: 5 mg Lactated Ringer's (Lactated Ringers 1000 Ml Bag*) 1,000 mls @ 100 mls/hr IV PER RATE [facility] Lactulose (Lactulose*) 30 ml PO Q6H PRN PRN Reason: constipation Lisinopril (Prinivil Tab*) [facility] Last Admin: 12/01/17 09:21 Dose: 20 mg Magnesium Hydroxide (Milk Of Magnesia Liq*) 30 ml PO BID [facility] Last Admin: 12/01/17 09:20 Dose: 30 ml Magnesium Hydroxide (Milk Of Magnesia Liq*) 30 ml PO Q6H PRN PRN Reason: constipation Montelukast Sodium (Singulair Tab*) 10 mg PO BEDTIME [facility] Last Admin: 11/30/17 20:50 Dose: 10 mg Morphine Sulfate (Morphine Inj (Syringe)*) 2 mg IV Q2H PRN PRN Reason: PAIN Last Admin: 11/29/17 15:40 Dose: 2 mg Ondansetron HCl (Zofran Inj*) 4 mg IV Q6H PRN PRN Reason: nausea Ondansetron HCl (Zofran Tab*) 4 mg PO Q6H PRN PRN Reason: NAUSEA Oxycodone HCl (Roxycodone Tab*) 10 mg PO Q4H PRN PRN Reason: SEVERE PAIN Last Admin: 12/01/17 17:12 Dose: 10 mg Oxycodone/Acetaminophen (Percocet 5/325 Tab*) 2 tab PO Q4H PRN PRN Reason: PAIN Last Admin: 12/01/17 13:40 Dose: 2 tab Oxycodone/Acetaminophen (Percocet 5/325 Tab*) 1 tab PO Q4H PRN PRN Reason: PAIN Pharmacy Profile Note (Coumadin Daily Reminder*) 1 note FOLLOW UP 1700 [facility] Last Admin: 12/01/17 17:14 Dose: 1 note Polyethylene Glycol/Electrolytes (Miralax*) 17 gm PO DAILY PRN PRN Reason: Constipation Last Admin: 12/01/17 09:19 Dose: 17 gm Sucralfate (Carafate*) 1 gm PO AC [facility] Last Admin: 12/01/17 16:56 Dose: Not Given Vital Signs - 8 hr 12/01/17 12/01/17 12/01/17 10:03 11:27 11:30 Temperature 98.6 F Pulse Rate 86 Respiratory 22 20 16 Rate Blood Pressure 135/49 (mmHg) O2 Sat by Pulse 93 Oximetry 12/01/17 12/01/17 12/01/17 11:38 13:40 15:39 Temperature 97.9 F Pulse Rate 81 Respiratory 16 18 16 Rate Blood Pressure 142/55 (mmHg) O2 Sat by Pulse 99 Oximetry 12/01/17 12/01/17 12/01/17 16:00 16:13 17:12 Temperature Pulse Rate Respiratory 17 18 Rate Blood Pressure (mmHg) O2 Sat by Pulse 99 Oximetry Oxygen Devices in Use Now: None Appearance: NAD Eyes: No Scleral Icterus, PERRLA Ears/Nose/Mouth/Throat: NL Teeth, Lips, Gums, Mucous Membranes Moist Respiratory: Symmetrical Chest Expansion and Respiratory Effort, Clear to Auscultation Cardiovascular: NL Sounds; No Murmurs; No JVD, RRR Abdominal: NL Sounds; No Tenderness; No Distention, No Hepatosplenomegaly Extremities: No Edema, - - right knee in brace and ice wrap Skin: No Rash or Ulcers Neurological: Alert and Oriented x 3, NL Sensation, NL Muscle Strength and Tone Result Diagrams: 12/01/17 05:09 11/30/17 06:09 Additional Lab and Data: Laboratory Results - last 24 hr 12/01/17 12/01/17 05:09 05:09 Hgb 8.6 L Hct 25 L Plt Count 102 L MPV 8 INR (Anticoag Therapy) 1.42 H Microbiology and Other Data: Microbiology 11/29/17 10:56 Urine Urine Culture - Final No Growth (<1,000 CFU/mL) Assess/Plan/Problems-Billing Assessment: 72 yo male PMH lung cancer, HTN, BPH, 40 smoking years. s/p RTKA POD #2. Planned discharge 12/02. - Patient Problems (1) BPH (benign prostatic hyperplasia) Current Visit: Yes Status: Acute Code(s): N40.0 - BENIGN PROSTATIC HYPERPLASIA WITHOUT LOWER URINRY TRACT SYMP SNOMED Code(s): 967574377 Comment: Briceno placed by urology. Will keep in and have removed with Urology outpatient. (2) COPD (chronic obstructive pulmonary disease) Current Visit: Yes Status: Acute Code(s): J44.9 - CHRONIC OBSTRUCTIVE PULMONARY DISEASE, UNSPECIFIED SNOMED Code(s): 20762458 Comment: 40 years smoking history. On no inhalers at home. Not currently bronchospastic. On RA. Duoneb PRN. (3) DVT prophylaxis Current Visit: Yes Status: Acute Code(s): HNY5401 - SNOMED Code(s): 884530233 Comment: Lovenox to warfarin. (4) GERD (gastroesophageal reflux disease) Current Visit: Yes Status: Acute Code(s): K21.9 - GASTRO-ESOPHAGEAL REFLUX DISEASE WITHOUT ESOPHAGITIS SNOMED Code(s): 829943891 Comment: Continue omeprazole and carafate. (5) HTN (hypertension) Current Visit: Yes Status: Acute Code(s): I10 - ESSENTIAL (PRIMARY) HYPERTENSION SNOMED Code(s): 02472751 Comment: Normotensive on home medications. (6) Lung cancer Current Visit: Yes Status: Acute Code(s): C34.90 - MALIGNANT NEOPLASM OF UNSP PART OF UNSP BRONCHUS OR LUNG SNOMED Code(s): 618691468 Comment: s/p chemo, last September 2017. No s/s or recurrence. (7) Post-operative state Current Visit: Yes Status: Acute Code(s): Z98.890 - OTHER SPECIFIED POSTPROCEDURAL STATES SNOMED Code(s): 96092311 Comment: Patient is POD#2 from RTKA. Patient's pain is well controlled. Briceno in place, plan for D/C with briceno and F/U with urology. (8) Anemia Current Visit: Yes Status: Acute Code(s): D64.9 - ANEMIA, UNSPECIFIED SNOMED Code(s): 962734800 Comment: Hgb 8.6, normocytic. monitor. Status and Disposition: ortho inpatient, medicine consulting. Plan for home 12/02. Attending: Vimal Delarosa
[2017-12-01] MEDS: Montelukast Sodium TAB* 10 MG PO SCH (20:49)
[2017-12-02 06:12] LABS: Hematocrit 26 % (42-52); Hemoglobin 8.9 g/dl (14.0-18.0); Mean Platelet Volume 8 um3 (7.4-10.4); Platelet Count 104 10^3/ul (150-450)
[2017-12-02 06:43] LABS: INR 1.94 (0.77-1.02)
[2017-12-02] MEDS: Magnesium Hydroxide LIQ* 30 ML UDC PO SCH (07:23)
[2017-12-02] MEDS: Sucralfate TAB* 1 GM PO SCH ×2 (07:29→09:39)
[2017-12-02 07:42] VITALS: BP 139/54
[2017-12-02] MEDS: Finasteride TAB* 5 MG PO SCH (08:30)
[2017-12-02] MEDS: Atorvastatin* 10 MG TAB PO SCH (08:30)
[2017-12-02] MEDS: amLODIPine TAB* 5 MG PO SCH (08:30)
[2017-12-02] MEDS: Docusate CAP* 100 MG PO SCH (08:30)
[2017-12-02] MEDS: Lisinopril TAB* 10 MG PO SCH (08:31)
[2017-12-02] MEDS: oxyCODONE/Acetamin 5/325 MG* TAB PO PRN (08:33)
--- NOTE | 2017-12-02 08:49 | PN ---
Progress Note - Progress Note Date of Service: 12/02/17 SOAP: Subjective: 72 y/o male s/p R TKA 11/[address] Thomas, uncomplicated. VSS, afebrile. No questions re: surgery, eager for D/C today. Objective: GEneral- well appearing, NAD AO MSK- R dressing removed, incision c/d/i, minimal edema, no ecchymosis, redressed, + DF/ PF, PT 2+ b/l, SITLT b/l Vital Signs Temp 98.6 F 12/02/17 07:35 Pulse 87 12/02/17 07:35 Resp 18 12/02/17 10:44 BP 139/54 12/02/17 07:35 Pulse Ox 94 12/02/17 08:00 Intake & Output 12/01/17 12/02/17 12/02/17 18:59 06:59 18:59 Intake Total 660 860 Output Total 652 975 0 Balance 8 -115 0 Intake: Oral 660 860 Output: Briceno 652 975 0 Other: Estimated Void Large # Bowel Movements 1 0 Estimated Stool Amount Small Assessment: Stable 72 y/o male s/p R TKA 11/[address] Thomas, uncomplicated. Plan: - Leave briceno in f/u with urology due to urethral stricture, patient aware and prior patient of DR. Garcia - INR theraputic, continue coumadin, no lovenox. - Continue PT as shown - Follow up with DR. Thomas within 10 days Active Medications Generic Name Dose Route Start Last Admin Trade Name Freq PRN Reason Stop Dose Admin Acetaminophen 650 mg 11/29/17 12:22 Tylenol Tab* PO Q4H PRN PAIN OR TEMPERATURE Albuterol 2.5 mg 11/29/17 16:16 Ventolin 2.5 Mg/3 Ml Neb.Yennifer* INH Q4H PRN SOB/WHEEZING Amlodipine Besylate 10 mg 11/30/17 09:00 12/02/17 08:30 Norvasc Tab* PO 10 mg DAILY M[facility] Administration Atorvastatin Calcium 5 mg 11/30/17 09:00 12/02/17 08:30 Lipitor* PO 5 mg QAM [facility]OU Administration Protocol Bisacodyl 10 mg 11/29/17 12:22 Dulcolax Supp* [place] DAILY PRN constipation Cyclobenzaprine HCl 10 mg 11/29/17 12:22 12/01/17 10:03 Flexeril Tab* PO 10 mg TID PRN Administration SPASMS Diphenhydramine HCl 12.5 mg 11/29/17 12:22 Benadryl Iv* IV Q6H PRN PRURITIS Docusate Sodium 100 mg 11/29/17 21:00 12/02/17 08:30 Colace Cap* PO 100 mg BID [facility] Administration Finasteride 5 mg 11/30/17 09:00 12/02/17 08:30 Proscar Tab* PO 5 mg QAM [facility] Administration Lactated Ringer's 1,000 mls @ 100 mls/hr 11/29/17 13:00 Lactated Ringers 1000 Ml Bag* IV PER RATE [facility] Lactulose 30 ml 11/29/17 12:22 Lactulose* PO Q6H PRN constipation Lisinopril 20 mg 11/30/17 09:00 12/02/17 08:31 Prinivil Tab* PO 20 mg QAM [facility] Administration Magnesium Hydroxide 30 ml 11/29/17 21:00 12/02/17 07:23 Milk Of Magnesia Liq* PO Not Given BID [facility] Magnesium Hydroxide 30 ml 11/29/17 12:22 Milk Of Magnesia Liq* PO Q6H PRN constipation Montelukast Sodium 10 mg 11/29/17 21:00 12/01/17 20:49 Singulair Tab* PO 10 mg BEDTIME [facility] Administration Morphine Sulfate 2 mg 11/29/17 12:22 11/29/17 15:40 Morphine Inj (Syringe)* IV 2 mg Q2H PRN Administration PAIN Ondansetron HCl 4 mg 11/29/17 12:22 Zofran Inj* IV Q6H PRN nausea Ondansetron HCl 4 mg 11/29/17 12:22 Zofran Tab* PO Q6H PRN NAUSEA Oxycodone HCl 10 mg 11/29/17 12:22 12/01/17 17:12 Roxycodone Tab* PO 10 mg Q4H PRN Administration SEVERE PAIN Oxycodone/Acetaminophen 2 tab 11/29/17 12:22 12/02/17 08:33 Percocet 5/325 Tab* PO 2 tab Q4H PRN Administration PAIN Oxycodone/Acetaminophen 1 tab 11/29/17 12:22 Percocet 5/325 Tab* PO Q4H PRN PAIN Pharmacy Profile Note 1 note 11/29/17 17:00 12/01/17 17:14 Coumadin Daily Reminder* FOLLOW UP 1 note 1700 [facility] Administration Polyethylene Glycol/Electrolytes 17 gm 11/29/17 12:22 12/01/17 09:19 Miralax* PO 17 gm DAILY PRN Administration Constipation Sucralfate 1 gm 11/29/17 16:30 12/02/17 09:39 Carafate* PO Not Given AC [facility] Warfarin Sodium 2.5 mg 12/02/17 17:00 Coumadin Tab(*) PO 12/02/17 17:01 ONCE@1700 ONE Protocol
[2017-12-02] MEDS ORDERED: Warfarin TAB(*) 2.5 MG PO ONE (17:00)
--- NOTE | 2017-12-02 19:50 | DS ---
DISCHARGE SUMMARY: DATE OF ADMISSION/SURGERY: 11/29/17 DATE OF DISCHARGE: 12/02/17 PROVIDER: Dr. Thomas.* (DICTATED BY GWEN BRIDGES) CHIEF COMPLAINT: 1. Right knee pain. 2. Hypertension. 3. Lung cancer. 4. COPD. 5. Elevated cholesterol. 6. GERD. 7. BPH. 8. Anemia. 9. Pancytopenia. DISCHARGE DIAGNOSES: 1. Status post right total knee arthroplasty. 2. Hypertension. 3. Lung cancer. 4. Chronic obstructive pulmonary disease. 5. Elevated cholesterol. 6. Gastroesophageal reflux disease. 7. Benign prostatic hyperplasia. 8. History of pancytopenia. PROCEDURE: Right total knee arthroplasty. CONSULTATIONS: 1. Physical Therapy. 2. Occupational Therapy. 3. Hospitalist consult. BRIEF HISTORY: Mr. Espinosa is a pleasant 72-year-old gentleman with a long- standing history of right osteoarthritis of the knee, who failed conservative treatment and elected to undergo a right total knee arthroplasty by Dr. Kaci Thomas on 11/29/17. HOSPITAL COURSE: The patient was admitted to [facility] on 11/29/17 , where he underwent an uncomplicated right total knee arthroplasty by Dr. Kaci Thomas. Postoperatively, he recovered in the surgical short stay unit. His Bay was removed on postoperative day 2 and he was voiding on his own without difficulty. He was advanced to regular diet and his pain was controlled with p.o. Percocet. He was restarted on his home medications. His labs and vital signs remained stable. He was able to weight bear as tolerated on the right lower extremity and advanced appropriately with physical therapy and occupational therapy. His DVT prophylaxis was managed with Lovenox and Coumadin until he reached a therapeutic INR. By postoperative day 3, he is orthopedically and medically stable for discharge to go home with home services. PHYSICAL EXAMINATION: General: Well-appearing, in no acute distress, alert and oriented, resting comfortably, appearing fatigued. Vital Signs: Temperature 98.6, pulse 87, respirations 18, blood pressure 139/64, pulse oxygenation 94% on room air. Musculoskeletal: Right surgical dressing removed, incision is clean, dry, and intact, minimal erythema, no ecchymosis noted, redressed without difficulty. Positive dorsiflexion and plantar flexion bilaterally with posterior tibial pulses on the right hand side 2+. Sensation is intact to light touch in bilateral lower extremities. DIAGNOSTIC STUDIES/LAB DATA: Laboratory data on the date of discharge include an H and H of 8.9 and 26 with an INR of 1.94. Radiographs: Postoperative films of the right knee show right total knee arthroplasty. DISCHARGE MEDICATIONS: 1. Acetaminophen 650 mg p.o. q.4 hours p.r.n. for pain. 2. Norvasc 10 mg p.o. daily. 3. Cyclobenzaprine 10 mg p.o. t.i.d. p.r.n. 4. Colace 100 mg p.o. b.i.d. 5. Esomeprazole 40 mg p.o. q.a.m. 6. Proscar 5 mg p.o. q.a.m. 7. Fluocinonide 0.05% cream topically b.i.d. 8. 10 mg p.o. q.a.m. 9. Lisinopril 20 mg p.o. q.a.m. 10. Montelukast sodium 10 mg p.o. q.h.s. 11. Percocet 1 to 2 tablets 5/325 mg p.r.n. q.4 to 6 hours. 12. Pravastatin 20 mg p.o. q.a.m. 13. Carafate 1 g p.o. a.c. 14. Ultram 50 mg 1 tablet p.o. q.6 hours, not to be taken while on Percocet. 15. Coumadin 2 mg 1 to 2 tablets every day at 5 p.m. per physician's instructions. CONDITION ON DISCHARGE: Stable. DISCHARGE INSTRUCTIONS: Mr. Espinosa is a very pleasant 72-year-old gentleman, postoperative day 3, status post right total knee arthroplasty, which was uncomplicated. He was orthopedically and medically stable for discharge to home with home services. His labs and vital signs were stable. He will restart his home medications. He will take 2 mg of Coumadin on 12/02/17, 4 mg on 12/03/17, and 2 mg on 12/04/17 with an INR check on 12/05/17. He will remain weightbearing as tolerated on the right lower extremity. He will have home physical therapy twice times a week. He will take Percocet or Ultram as needed for pain control and Colace up to 3 times a day as needed for constipation. During the procedure, the patient had a Bay placed by Dr. Garcia due to a urethral stricture. He will go home with this Bay and will follow up with Dr. Garcia as an outpatient for removal in the future. The patient was aware of this and has been a patient of Dr. Garcia in the past. He was instructed to go to the ER should he develop chest pain or shortness of breath. Should he develop fever, increasing pain, or redness, he is to call the office immediately. GWEN BRIDGES [id number]/[facility] #: [id number] SAMMY
== END 2017-12-02 12:00 | disposition home health service (06) | DRG 469 ==
LOC: AA 07:23 → SSU 15:07
PROVIDERS: ADMIT Orthopaedic Surgery Adult Reconstructive Orthopaedic Surgery; ATTEND Orthopaedic Surgery Adult Reconstructive Orthopaedic Surgery
PROC: 0TCB8ZZ Extirpation of Matter from Bladder, Via Natural or Artificial Opening Endoscopic (ICD-10-PCS; 2017-11-29)
PROC: 0SRC0J9 Replacement of Right Knee Joint with Synthetic Substitute, Cemented, Open Approach (ICD-10-PCS; principal; 2017-11-29 09:30)
PROC: 0T7D7ZZ Dilation of Urethra, Via Natural or Artificial Opening (ICD-10-PCS; 2017-11-29 09:30)
DX: M17.11 Unilateral primary osteoarthritis, right knee (principal); D61.810 Antineoplastic chemotherapy induced pancytopenia; C34.90 Malignant neoplasm of unspecified part of unspecified bronchus or lung; D64.9 Anemia, unspecified; J44.9 Chronic obstructive pulmonary disease, unspecified; E78.00 Pure hypercholesterolemia, unspecified; I10 Essential (primary) hypertension; K21.9 Gastro-esophageal reflux disease without esophagitis; T45.1X5A Adverse effect of antineoplastic and immunosuppressive drugs, initial encounter; N35.9 Urethral stricture, unspecified; M25.761 Osteophyte, right knee; R33.9 Retention of urine, unspecified; N21.0 Calculus in bladder; N32.3 Diverticulum of bladder; N40.0 Benign prostatic hyperplasia without lower urinary tract symptoms; Z98.49 Cataract extraction status, unspecified eye; Z88.1 Allergy status to other antibiotic agents; Z88.8 Allergy status to other drugs, medicaments and biological substances; Z88.6 Allergy status to analgesic agent; Z82.49 Family history of ischemic heart disease and other diseases of the circulatory system; Z80.1 Family history of malignant neoplasm of trachea, bronchus and lung; Z80.8 Family history of malignant neoplasm of other organs or systems; Z87.891 Personal history of nicotine dependence; Z72.89 Other problems related to lifestyle; Y92.9 Unspecified place or not applicable; Z79.01 Long term (current) use of anticoagulants
CPT/HCPCS: 36415; 80048; 85014; 85018; 85025; 85049; 85610; 87086; A9270-GY; C1776; J0690; J1100; J1580; J1650; J2250; J2270; J2405; J2704; J3010

== ENCOUNTER → 2018-04-07 08:30 | Day surgery (SDC) | payer MEDICARE, OTHER ==
[~2018-04-07 08:30] MED LIST changes: +Buffered Lidocaine 0.9% SYRIN* 5 ML/SYR SYRINGE ONE; +EPHEDrine (Pressors)* 50 MG/ML VIAL ONE; +Lidocaine 2% PF * 5 ML VIAL ONE; +Naloxone* 0.4 MG/ML 1 ML VIAL IV PRN; +Propofol* 10 MG/ML 20 ML BTL IV PUSH ONE; +Succinylcholine* 20 MG/ML 10 ML VIAL ONE; +fentaNYL* 50 MCG/ML 2 ML VIAL (100 MCG VIAL) ONE
[2018-04-07 12:44] VITALS: BP 124/69
--- NOTE | 2018-04-08 04:09 | PRO ---
BRONCHOSCOPY REPORT: DATE OF PROCEDURE: 04/07/18 PROCEDURE PERFORMED: Bronchoscopy with endobronchial ultrasound-guided fine needle aspiration from station 7, R4 lymph nodes. ANESTHESIA: General anesthesia. ANESTHESIOLOGIST: Dr. Pierce. INDICATIONS FOR PROCEDURE: Lymphatic tissue, PET positive nodes, additional material for molecular testing. PROCEDURE IN DETAIL: Informed consent was obtained from the patient prior to the procedure after all the risks and benefits were thoroughly explained. 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 The patient received treatment, repeat PET scan showed PET positive nodes. A timeout was agreed on by attending staff prior to the procedure. A flexible bronchoscope was inserted through ET tube for airway exam. Bronchoscope was advanced to the right mainstem bronchus which was inspected. Endotracheal tube positioning was at 3 cm above the level of court. The bronchoscope was then advanced into the left bronchial tree which was inspected. No endobronchial lesions were noted. Thin secretions were noted and were suctioned out. Bronchoscope was withdrawn and an EBUS bronchoscope was inserted. Station 7 lymph node was only mildly enlarged and was sampled with 4 passes. Rapid onsite evaluation revealed lymphatic tissue with no malignant cells. R4 was enlarged and was accessed with 7 passes. Rapid onsite evaluation revealed lymphatic tissue and malignant cells. Rest of the specimen was placed in formalin for molecular testing. The patient tolerated the procedure well. The patient was extubated and seen in Recovery in optimal condition. [id number]/[facility] #: [id number] [facility]
== END | disposition home or self-care (01) ==
LOC: OR 08:30
PROVIDERS: ATTEND Internal Medicine
DX: C34.92 Malignant neoplasm of unspecified part of left bronchus or lung (principal); C77.1 Secondary and unspecified malignant neoplasm of intrathoracic lymph nodes; I10 Essential (primary) hypertension; J44.9 Chronic obstructive pulmonary disease, unspecified; D50.9 Iron deficiency anemia, unspecified; Z87.891 Personal history of nicotine dependence; N40.0 Benign prostatic hyperplasia without lower urinary tract symptoms
CPT/HCPCS: 88172; 88173; 88177; 88305; 88341; 88342; J0330; J2704; J3010

== ENCOUNTER 2018-04-21 10:01 | Day surgery (SDC) | payer MEDICARE, OTHER ==
[~2018-04-21 10:01] MED LIST changes: +Acetaminophen TAB* 325 MG PO PRN; -Buffered Lidocaine 0.9% SYRIN* 5 ML/SYR SYRINGE ONE; +DiMENhydriNATE IV* 50 MG/ML VIAL IV PUSH PRN; -EPHEDrine (Pressors)* 50 MG/ML VIAL ONE; +Levalbuterol 0.63MG/3ML NEB* UNIT OF USE INH PRN; -Lidocaine 2% PF * 5 ML VIAL ONE; +NS 0.9% 1000 ML* 1,000 ML IV SCH; +Ondansetron ODT TAB* 4 MG PO PRN; +PROCHLORPERAZINE INJ 5 MG/ML 2 ML VIAL IV PRN; -Propofol* 10 MG/ML 20 ML BTL IV PUSH ONE; -Succinylcholine* 20 MG/ML 10 ML VIAL ONE; -fentaNYL* 50 MCG/ML 2 ML VIAL (100 MCG VIAL) ONE
[2018-04-21] MEDS ORDERED: ceFAZolin 2 GM PREMIX (*) 2 GM/50 ML BAG IVPB ONE (10:52)
[2018-04-21] MEDS ORDERED: fentaNYL* 50 MCG/ML 2 ML VIAL (100 MCG VIAL) ONE (11:47)
[2018-04-21] MEDS ORDERED: Midazolam* 1 MG/ML 2 ML VIAL (2 MG) ONE (11:47)
[2018-04-21] MEDS ORDERED: Dexamethasone IV* 4 MG/ML 1 ML (4 MG) ONE ×2 (11:50→13:04)
[2018-04-21] MEDS ORDERED: Lidocain 1% EPI 1:100,000 * 30 ML MDV ONE (12:28)
[2018-04-21] MEDS ORDERED: Famotidine IV* 10 MG/ML 2 ML (20 mg) ONE (13:04)
[2018-04-21] MEDS ORDERED: Propofol* 10 MG/ML 20 ML BTL IV PUSH ONE (13:04)
[2018-04-21] MEDS ORDERED: Lidocaine 2% PF * 5 ML VIAL ONE (13:04)
[2018-04-21 14:05] VITALS: BP 140/68
--- NOTE | 2018-04-21 14:45 | RAD ---
CPT II Codes: G9500 Indication: PowerPort placement. 25 seconds of fluoroscopy time was used. Fluoroscopic services provided for referring physician for PowerPort placement. The tip of the PowerPort is in the superior vena cava. IMPRESSION: Fluoroscopic services provided for referring physician for PowerPort placement.
--- NOTE | 2018-04-25 01:14 | OP ---
CC: Dr. Ruy Cain; Dr. Kiek Casillas.* DATE OF OPERATION: 04/21/18 - SDS DATE OF : 43 SURGEON: Leon Dooley MD BARK SKINNER: None. ANESTHESIA: Local MAC anesthesia. PRE-OP DIAGNOSIS: Lung cancer. POST-OP DIAGNOSIS: Lung cancer. OPERATIVE PROCEDURE: Insertion of PowerPort. ESTIMATED BLOOD LOSS: Minimal blood loss. FLUIDS: Minimal crystalloid fluid given. SPECIMENS: None. PORT: An 8-[place] PowerPort inserted via the right subclavian vein. DESCRIPTION OF PROCEDURE: The patient was identified in the preoperative area. Consent obtained. After discussing the procedure, he was marked and brought to the operating room and placed on the operating table in a supine position. Gentle sedation was given and the patient's right upper chest and neck were clipped of hair and then prepped and draped in a standard surgical fashion. A time-out was performed. The right subclavian vein was accessed after injection of lidocaine. The wire was inserted under fluoroscopy. It was noted to be in appropriate position. A pocket was made inferior to the wire to hold the port. The wire was then brought in through this incision site and the vein was dilated under fluoroscopy with the given dilator. Split-away catheter was then inserted. Catheter was inserted and split-away catheter removed under fluoroscopy. Next, the catheter tubing which was 8-[place] was cut to a size and attached to the pre-flushed PowerPort, which was then dropped into the pocket and sutured medially, laterally and at the hub with 0-Prolene sutures. The wound was then irrigated. The port was accessed and flushed with first saline, after good aspiration of blood and then with heparinized saline. The defect was reapproximated in a standard fashion with 4-0 Monocryl sutures in a subcuticular fashion followed by Steri-Strips and sterile dressing. The patient tolerated the procedure well and was woken up and transferred to the PACU in stable condition. [id number]/[facility] #: [id number] [facility]aley
== END 2018-04-21 14:17 | disposition home or self-care (01) ==
LOC: OR 10:01
PROVIDERS: ATTEND Surgery
DX: C34.10 Malignant neoplasm of upper lobe, unspecified bronchus or lung (principal); J44.9 Chronic obstructive pulmonary disease, unspecified; Z87.891 Personal history of nicotine dependence; I10 Essential (primary) hypertension; D50.9 Iron deficiency anemia, unspecified; E78.00 Pure hypercholesterolemia, unspecified; K21.9 Gastro-esophageal reflux disease without esophagitis; R04.0 Epistaxis; G47.33 Obstructive sleep apnea (adult) (pediatric)
CPT/HCPCS: 76000; C1788; J0690; J1100; J1642; J2250; J2704; J3010